=== PATIENT | female | born 1930 | race Caucasian/White ===

== ENCOUNTER 2018-02-19 09:35 | Inpatient (IN) ==
[2018-02-19 10:26] LABS: Baso # (Auto) 0.1 th/mm3 (0.0-0.2); Baso % (Auto) 0.7 % (0.0-2.0); Eos # (Auto) 0.1 th/mm3 (0.0-0.4); Eos % (Auto) 2.1 % (0.0-4.0); Hematocrit 39.3 % (35.0-46.0); Hemoglobin 12.8 gm/dL (11.6-15.3); Lymph # (Auto) 1.9 th/mm3 (1.0-4.8); Lymph % (Auto) 26.8 % (9.0-44.0); Mean Corpuscular HGB Conc 32.7 % (32.0-36.0); Mean Corpuscular Hemoglobin 29.3 pg (27.0-34.0); Mean Corpuscular Volume 89.8 fL (80.0-100.0); Mean Platelet Volume 9.2 fL (7.0-11.0); Mono # (Auto) 0.5 th/mm3 (0.0-0.9); Mono % (Auto) 7.5 % (0.0-8.0); Neut # (Auto) 4.4 th/mm3 (1.8-7.7); Neut % (Auto) 62.9 % (16.0-70.0); Platelet Count 195 th/mm3 (150-450); Red Blood Count 4.38 mil/mm3 (4.00-5.30); Red Cell Distribution Width 13.7 % (11.6-17.2); White Blood Count 7.1 th/mm3 (4.0-11.0)
--- NOTE | 2018-02-19 10:35 | XR ---
EXAM DATE: 02/19/2018 10:32 AM EDT AGE/SEX: 88 years / Female INDICATIONS: Leg pain. Fall. CLINICAL DATA: This is the patient's initial encounter. Patient reports that signs and symptoms have been present for 1 day and indicates a pain score of 0/10. MEDICAL/SURGICAL HISTORY: None. . Left knee surgery. COMPARISON: No prior exams available for comparison. FINDINGS: Cardiomegaly and aortic calcification. Degenerative changes of the spine. High riding humeral heads a re noted. There is mild interstitial prominence without focal consolidation or effusion. CONCLUSION: Mild interstitial prominence. Electronically signed by: Rodney Ye MD 02/19/2018 10:33 AM EDT
--- NOTE | 2018-02-19 10:40 | XR ---
EXAM DATE: 02/19/2018 10:34 AM EDT AGE/SEX: 88 years / Female INDICATIONS: Displaced fracture of the left distal femur from fall. CLINICAL DATA: This is the patient's initial encounter. Patient reports that signs and symptoms have been present for 1 day and indicates a pain score of 6/10. MEDICAL/SURGICAL HISTORY: None. . Left knee surgery. COMPARISON: No prior exams available for comparison. FINDINGS: There is a comminuted and displaced fracture through the distal femoral diaphysis with posterior disp lacement of the distal fracture fragments and apex anterior angulation. A total knee arthroplasty is present. CONCLUSION: Distal femur fracture. Electronically signed by: Rodney Ye MD 02/19/2018 10:39 AM EDT
[2018-02-19 10:50] LABS: Alanine Aminotransferase 24 U/L (10-53); Alkaline Phosphatase 75 U/L (45-117); Total Protein 6.8 g/dL (6.4-8.2)
--- NOTE | 2018-02-19 10:55 | P.HPFP ---
History of Present Illness Primary Care Physician: Soy Baer MD, R2 <Dave Mccurdy - 02/20/18 13:35> Soy Baer MD, R2 <Glenda Knight - 02/19/18 10:55> History of Present Illness: Dr Soy Baer is PCP Ms. Peacock is a 88yof with known osteopenia/osteoporosis who presents with pain in L leg. She reports that this morning at about 9:00 she was chasing her grandchild and went to lift her leg. She heard a pop and grabbed shelving unit to slide to the ground. No direct blow to the leg. Pain felt in the L ankle, but nothing in the knee or hip. She did not hit her head or pass out. She has not ambulated since the incident. At baseline she ambulates without assistance. H/o kyphoplasty. Is currently on Calcitonin. Has not eaten anything today. PMH: Dyslipidemia Lymphedema Insomnia GERD [place] Osteopenia/Osteoporosis Meds: Simvastatin Temazepam Omeprazole Triam/HCTZ Calcitonin Sx: L TKR Hysterectomy Cholecystectomy Hernia repair Tonsillectomy Kyphoplasty x2 FMH: Mother- heart problems Social: Tobacco- former smoker EtOH- none Drugs- none Lives at home with her daughter. <Glenda Knight - 02/19/18 13:18> - Diagnosis (1) Femur fracture, left (2) Tibia/fibula fracture (3) Abnormal chest xray (4) Dyslipidemia (5) GERD (gastroesophageal reflux disease) (6) Lymphedema (7) Nutrition, metabolism, and development symptoms <Dave Mccurdy - 02/20/18 13:35> (1) Femur fracture, left (2) Tibia/fibula fracture (3) Abnormal chest xray (4) Dyslipidemia (5) GERD (gastroesophageal reflux disease) (6) Lymphedema (7) Nutrition, metabolism, and development symptoms <Glenda Knight - 02/19/18 14:23> Inpatient Certification: I certify that the inpatient services were ordered in accordance with Medicare regulations governing the order. This includes certification that hospital inpatient services are reasonable and necessary and in the case of services not specified as inpatient-only under 42 CFR 419.22(n), that they are appropriately provided as inpatient services in accordance to with the 2-midnight benchmark under 43 CFR 412.3(e) <Dave Mccurdy 02/20/18 13:35> Review of Systems Constitutional: Denies fever(s), Denies headache(s), Denies weakness <Glenda Knight 02/19/18 11:33> Cardiovascular: Reports leg swelling (C), Denies chest pain, Denies fainting, Denies lightheadedness <Glenda Knight 02/19/18 11:33> Comments: Chronic <Glenda Knight 02/19/18 11:33> Respiratory: Denies cough, Denies shortness of breath <Glenda Knight 12:51> Gastrointestinal: Reports heartburn, Denies bright, red blood in stools, Denies change in bowel habits, Denies nausea, Denies vomiting <Glenda Knight 12:51> Genitourinary: Reports painful urination, Reports urinary urgency, Denies blood in urine, Denies urinary incontinence <Glenda Knight 02/19/18 12:51> Musculoskeletal: Reports muscle cramps, Denies joint pain <Glenda Knight 08/07 12:51> Neurologic: Denies abnormal walking, Denies dizziness, Denies frequent falls < Glenda Knight 02/19/18 12:51> PMFSH - History History Provided By: Patient <Glenda Knight 02/19/18 10:55> - Medical History Medical History: Medical History (Last Updated 02/19/18 @ 12:52 by Vargas Bermudez MD) Edema GERD (gastroesophageal reflux disease) Hemorrhage following tonsillectomy and adenoidectomy Hypercholesterolemia <Dave Mccurdy - 02/20/18 13:35> Medical History (Last Updated 02/19/18 @ 12:52 by Vargas Bermudez MD) Edema GERD (gastroesophageal reflux disease) Hemorrhage following tonsillectomy and adenoidectomy Hypercholesterolemia <Glenda Knight 02/19/18 13:14> - Surgical History Surgical History: Surgical History (Last Reviewed 02/19/18 @ 12:52 by Vargas Bermudez MD) History of cholecystectomy History of kyphoplasty History of left knee replacement History of tubal ligation Hx of appendectomy <Dave Mccurdy 02/20/18 13:35> Surgical History (Last Reviewed 02/19/18 @ 12:52 by Vargas Bermudez MD) History of cholecystectomy History of kyphoplasty History of left knee replacement History of tubal ligation Hx of appendectomy <AntoniaGlenda sharma 02/19/18 13:14> - Tobacco History Second Hand Smoke Exposure: No <Glenda Knight 02/19/18 10:55> Tobacco Use In Past 30 Days: No <Glenda Knight 02/19/18 10:55> Smoking Status: Former smoker <Glenda Knight 02/19/18 10:55> Tobacco Type: Cigarettes <Glenda Knight 02/19/18 10:55> - Alcohol History How Often Do You Have a Drink Containing Alcohol: Monthly or less <Glenda Knight 02/19/18 10:55> - Substance Use History Substance History: No History of Abuse <Glenda Knight 02/19/18 10:55> - Travel History Recent Travel in the [facility] Within the Last 8 Weeks: No <Glenda Knight 10:55> Recent Travel Out of the Country Within the Last 8 Weeks: No <Glenda Knight 02/19/18 10:55> - Immunization History Tetanus Immunization: Unsure <Glenda Knight 02/19/18 10:55> Hx Influenza Vaccine This Season: No <Glenda Knight 02/19/18 10:55> Medications and Allergies Allergies Allergy/AdvReac Type Severity Reaction Status Date / Time penicillin G Allergy Mild Hives Verified 02/19/18 09:52 erythromycin base Allergy Hives Verified 02/19/18 11:07 <Dave Mccurdy - 02/20/18 13:35> Home Medications Medication Instructions Recorded Confirmed Type Sleeping Pill 02/19/18 History omeprazole 20 mg PO DAILY 02/19/18 02/19/18 History simvastatin 20 mg PO QPM 02/19/18 02/19/18 History triamterene-hydrochlorothiazid 1 cap PO DAILY 02/19/18 02/19/18 History [Dyazide] <Dave Mccurdy - 02/20/18 13:35> Active Medications: Active Medications Acetaminophen (Tylenol) 650 mg PO Q6HR PRN PRN Reason: PAIN SCALE 1 TO 2 Hydrocodone Bitart/Acetaminophen ([place] 5/325) 1 tab PO Q4H PRN PRN Reason: PAIN SCALE 3 TO 5 Last Admin: 02/20/18 06:57 Dose: 1 tab Hydrocodone Bitart/Acetaminophen ([place] 7.5/325) 1 tab PO Q4H PRN PRN Reason: PAIN SCALE 6 TO 10 Last Admin: 02/20/18 11:29 Dose: 1 tab Al Hydroxide/Mg Hydroxide (Milk Of Magnant[place] Liq) 30 ml PO Q12H PRN PRN Reason: Mild Constipation Aspirin (Ecotrin) 81 mg PO BID [facility] Last Admin: 02/20/18 08:54 Dose: 81 mg Sodium Chloride (Ns Inj) 1,000 mls @ 125 mls/hr IV.CONT .Q8H [facility] Last Admin: 02/20/18 11:32 Dose: 125 mls/hr Cefazolin/Sodium Chloride (Ancef 2 Gm Premix Inj) 2 gm in 100 mls @ 200 mls/hr IV.SIG Q8H [facility] Stop: 02/20/18 14:29 Last Admin: 02/20/18 13:21 Dose: 200 mls/hr Miscellaneous Information ([facility] [facility] 1 each OTHER UNSCH PRN PRN Reason: SEE LABEL COMMENTS Stop: 02/20/18 16:07 Morphine Sulfate (Morphine Inj) 4 mg IV.PUSH Q3H PRN PRN Reason: BREAKTHROUGH PAIN Last Admin: 02/19/18 22:58 Dose: 4 mg Naloxone HCl (Narcan Inj) 0.4 mg IV.PUSH UNSCH PRN PRN Reason: SEE LABEL COMMENTS Pantoprazole Sodium (Protonix) 20 mg PO DAILY [facility] Last Admin: 02/20/18 08:54 Dose: 20 mg Pravastatin Sodium (Pravachol) 40 mg PO QPM [facility] Last Admin: 02/19/18 21:26 Dose: 40 mg Senna/Docusate Sodium (Katrina-Colace) 1 tab PO BID [facility] Last Admin: 02/20/18 08:54 Dose: 1 tab Sennosides (Senokot) 17.2 mg PO Q12H PRN PRN Reason: Moderate Constipation Sodium Chloride (Ns Flush) 2 ml IV.FLUSH UNSCH PRN PRN Reason: FLUSH AFTER USING IV ACCESS Triamterene/HCTZ (Dyazide 37.5/25 Mg) 1 cap PO DAILY [facility] Last Admin: 02/20/18 08:55 Dose: 1 cap Vitamin D (Vitamin D3) 2,000 unit PO DAILY [facility] Last Admin: 02/20/18 08:55 Dose: 2,000 unit <SaraAmilcar nicolasDave - 02/20/18 13:35> Active Medications Sodium Chloride (Ns Flush) 2 ml IV.FLUSH UNSCH PRN PRN Reason: FLUSH AFTER USING IV ACCESS <Glenda Knight Chip - 02/19/18 10:55> Exam Vital signs: Vital Signs 02/19/18 16:00 02/19/18 16:15 02/19/18 16:30 Temperature 97.4 F L Pulse Rate 72 76 78 Respiratory Rate 16 16 16 Blood Pressure 121/95 H 109/53 L 116/54 L Pulse Oximetry 94 L 98 99 02/19/18 16:45 02/19/18 17:30 02/19/18 20:00 Temperature 97.6 F Pulse Rate 82 89 96 H Respiratory Rate 19 16 17 Blood Pressure 112/53 L 109/55 L 109/55 L Pulse Oximetry 94 L 98 98 02/20/18 00:00 02/20/18 04:00 02/20/18 08:00 Temperature 97.5 F L 97.7 F 98.1 F Pulse Rate 92 H 90 89 Respiratory Rate 17 17 16 Blood Pressure 107/54 L 110/56 L 109/52 L Pulse Oximetry 98 98 91 L 02/20/18 12:00 Temperature 98.2 F Pulse Rate 86 Respiratory Rate 16 Blood Pressure 90/55 L Pulse Oximetry 90 L Intake & Output 02/19/18 02/20/18 02/20/18 18:59 06:59 18:59 Intake Total 1400 / 1400 2200 / 2200 100 / 100 Output Total 1450 / 1450 250 / 250 Balance -50 / -50 1950 / 1950 100 / 100 Weight 88.451 kg 88.6 kg Intake: IV 2200 / 2200 100 / 100 NS Inj 1,000 ML @ 125 mls/hr IV 1999 / 1999 .CONT .Q8H [facility] Rx#:[id number] Ancef 2 GM Premix Inj 2 gm In 100 / 100 100 / 100 100 ml @ 200 mls/hr IV.SIG Q8H [facility] Rx#:[id number] Anesthesia Amount 1400 / 1400 Output: Estimated Blood Loss 300 / 300 Urine Amount (Catheter) 1150 / 1150 250 / 250 Indwelling Urethral Catheter 1150 / 1150 250 / 250 Other: Date of Last Bowel Movement 02/18/18 <Dave Mccurdy - 02/20/18 13:35> Vital Signs 02/19/18 09:42 02/19/18 09:51 Temperature 97.7 F Pulse Rate 81 Respiratory Rate 15 Blood Pressure 192/83 H Pulse Oximetry 95 95 Intake & Output 02/18/18 02/19/18 02/19/18 18:59 06:59 18:59 Weight 88.451 kg <Glenda Knight - 02/19/18 10:55> Narrative: GENERAL: Female lying in bed resting comfortably no acute distress SKIN: Warm and dry. HEAD: Normocephalic. Atraumatic EYES: No scleral icterus. No injection or drainage. Oropharynx: Torus noted on hard palate, no lesions CARDIOVASCULAR: Regular rate and rhythm without murmurs, gallops, or rubs. RESPIRATORY: Breath sounds equal bilaterally. No accessory muscle use. No wheezing or crackles heard GASTROINTESTINAL: Abdomen soft, non-tender, nondistended. MUSCULOSKELETAL: No cyanosis. 2+ nonpitting edema bilaterally left slightly worse than right, nonpitting. Minimal tenderness to palpation around the ankle and lower thigh. No overt bruising noted. pulses and sensation intact bilaterally. Patient able to move toes bilaterally. <Glenda Knight - 02/19/18 13:14> Results - Labs Result diagrams: 02/20/18 03:39 02/20/18 03:39 <Dave Mccurdy - 02/20/18 13:35> Abnormal lab results 02/20/18 02/20/18 Range/Units 03:39 03:39 WBC 12.1 H D (4.0-11.0) th/mm3 RBC 3.02 L (4.00-5.30) mil/mm3 Hgb 9.1 L D (11.6-15.3) gm/dL Hct 27.1 L (35.0-46.0) % Neut % (Auto) 84.6 H (16.0-70.0) % Lymph % (Auto) 6.6 L (9.0-44.0) % [place] % (Auto) 8.7 H (0.0-8.0) % Neut # (Auto) 10.2 H (1.8-7.7) th/mm3 Lymph # (Auto) 0.8 L (1.0-4.8) th/mm3 [place] # (Auto) 1.1 H (0.0-0.9) th/mm3 BUN 29 H (7-18) mg/dL Creatinine 1.30 H (0.50-1.00) mg/dL Estimated GFR 39 L (>89) mL/min Random Glucose 158 H (74-106) mg/dL Calcium 7.7 L (8.5-10.1) mg/dL Short CBC 02/20/18 Range/Units 03:39 WBC 12.1 H D (4.0-11.0) th/mm3 Hgb 9.1 L D (11.6-15.3) gm/dL Hct 27.1 L (35.0-46.0) % Plt Count 165 (150-450) th/mm3 [facility] 02/20/18 03:39 Sodium 136 Potassium 4.7 Chloride 102 Carbon Dioxide 25.2 BUN 29 H Creatinine 1.30 H Calcium 7.7 L <Dave Mccurdy - 02/20/18 13:35> Short CBC 02/19/18 Range/Units 09:50 WBC 7.1 (4.0-11.0) th/mm3 Hgb 12.8 (11.6-15.3) gm/dL Hct 39.3 (35.0-46.0) % Plt Count 195 (150-450) th/mm3 Liver Function 02/19/18 Range/Units 09:50 Total Bilirubin 0.6 (0.2-1.0) mg/dL ALT 24 (10-53) U/L Alkaline Phosphatase 75 (45-117) U/L <Glenda Knight - 02/19/18 10:55> - Imaging Impressions Ankle X-Ray 02/19/18 00:00 CONCLUSION: Gross anatomical alignment. Femur X-Ray 02/19/18 00:00 CONCLUSION: Intact postsurgical changes with gross anatomical alignment. <Dave Mccurdy - 02/20/18 13:35> Impressions Femur X-Ray 02/19/18 09:42 CONCLUSION: Distal femur fracture. Chest X-Ray 02/19/18 09:43 CONCLUSION: Mild interstitial prominence. <Glenda Knight - 02/19/18 10:55> Caprini VTE Risk Assessment Caprini VTE Risk Assessment: Moderate/High Risk (score >= 2) <Glenda Knight - 02/19/18 13:14> Caprini Risk Assessment Model: Point Value = 1 Point Value = 2 Point Value = 3 Point Value = 5 Age 41-60 Minor surgery BMI > 25 kg/m2 Swollen legs Varicose veins or History of unexplained or recurrent spontaneous Oral contraceptives or hormone replacement Sepsis (< 1 month) Serious lung disease, including pneumonia (< 1 month) Abnormal pulmonary function Acute myocardial infarction Congestive heart failure (< 1 month) History of inflammatory bowel disease Medical patient at bed rest Age 61-74 Arthroscopic surgery Major open surgery (> 45 min) Laparoscopic surgery (> 45 min) Malignancy Confined to bed (> 72 hours) Immobilizing plaster cast Central venous access Age >= 75 History of VTE Family history of VTE Factor V Leiden Prothrombin [id number] Lupus anticoagulant Anticardiolipin antibodies Elevated serum homocysteine Heparin-induced thrombocytopenia Other congenital or acquired thrombophilia Stroke (< 1 month) Elective arthroplasty Hip, pelvis, or leg fracture Acute spinal cord injury (< 1 month) <Dave Mccurdy - 02/20/18 13:35> Point Value = 1 Point Value = 2 Point Value = 3 Point Value = 5 Age 41-60 Minor surgery BMI > 25 kg/m2 Swollen legs Varicose veins or History of unexplained or recurrent spontaneous Oral contraceptives or hormone replacement Sepsis (< 1 month) Serious lung disease, including pneumonia (< 1 month) Abnormal pulmonary function Acute myocardial infarction Congestive heart failure (< 1 month) History of inflammatory bowel disease Medical patient at bed rest Age 61-74 Arthroscopic surgery Major open surgery (> 45 min) Laparoscopic surgery (> 45 min) Malignancy Confined to bed (> 72 hours) Immobilizing plaster cast Central venous access Age >= 75 History of VTE Family history of VTE Factor V Leiden Prothrombin [id number] Lupus anticoagulant Anticardiolipin antibodies Elevated serum homocysteine Heparin-induced thrombocytopenia Other congenital or acquired thrombophilia Stroke (< 1 month) Elective arthroplasty Hip, pelvis, or leg fracture Acute spinal cord injury (< 1 month) <Glenda Knight - 02/19/18 10:55> Prophylaxis Regimen: Total Risk Factor Score Risk Level Prophylaxis Regimen 0-1 Low Early ambulation 2 Moderate Order ONE of the following: *Sequential Compression Device (SCD) *Heparin 5000 units SQ BID 3-4 Higher Order ONE of the following medications: *Heparin 5000 units SQ TID *Enoxaparin/Lovenox 40 mg SQ daily (WT < 150 kg, CrCl > 30 mL/min) *Enoxaparin/Lovenox 30 mg SQ daily (WT < 150 kg, CrCl > 10-29 mL/min) *Enoxaparin/Lovenox 30 mg SQ BID (WT < 150 kg, CrCl > 30 mL/min) AND/OR *Sequential Compression Device (SCD) 5 or more Highest Order ONE of the following medications: *Heparin 5000 units SQ TID (Preferred with Epidurals) *Enoxaparin/Lovenox 40 mg SQ daily (WT < 150 kg, CrCl > 30 mL/min) *Enoxaparin/Lovenox 30 mg SQ daily (WT < 150 kg, CrCl > 10-29 mL/min) *Enoxaparin/Lovenox 30 mg SQ BID (WT < 150 kg, CrCl > 30 mL/min) AND *Sequential Compression Device (SCD) <Dave Mccurdy - 02/20/18 13:35> Total Risk Factor Score Risk Level Prophylaxis Regimen 0-1 Low Early ambulation 2 Moderate Order ONE of the following: *Sequential Compression Device (SCD) *Heparin 5000 units SQ BID 3-4 Higher Order ONE of the following medications: *Heparin 5000 units SQ TID *Enoxaparin/Lovenox 40 mg SQ daily (WT < 150 kg, CrCl > 30 mL/min) *Enoxaparin/Lovenox 30 mg SQ daily (WT < 150 kg, CrCl > 10-29 mL/min) *Enoxaparin/Lovenox 30 mg SQ BID (WT < 150 kg, CrCl > 30 mL/min) AND/OR *Sequential Compression Device (SCD) 5 or more Highest Order ONE of the following medications: *Heparin 5000 units SQ TID (Preferred with Epidurals) *Enoxaparin/Lovenox 40 mg SQ daily (WT < 150 kg, CrCl > 30 mL/min) *Enoxaparin/Lovenox 30 mg SQ daily (WT < 150 kg, CrCl > 10-29 mL/min) *Enoxaparin/Lovenox 30 mg SQ BID (WT < 150 kg, CrCl > 30 mL/min) AND *Sequential Compression Device (SCD) <Glenda Knight - 02/19/18 10:55> Assessment and Plan - Assessment (1) Femur fracture, left Code(s): S72.92XA - Unspecified fracture of left femur, initial encounter for closed fracture Status: Acute (2) Tibia/fibula fracture Code(s): S82.209A - Unspecified fracture of shaft of unspecified tibia, initial encounter for closed fracture; S82.409A - Unspecified fracture of shaft of unspecified fibula, initial encounter for closed fracture Status: Acute (3) Abnormal chest xray Code(s): R93.8 - Abnormal findings on diagnostic imaging of other specified body structures Status: Acute (4) Dyslipidemia Code(s): E78.5 - Hyperlipidemia, unspecified Status: Acute (5) GERD (gastroesophageal reflux disease) Code(s): K21.9 - Gastro-esophageal reflux disease without esophagitis Status: Acute (6) Lymphedema Code(s): I89.0 - Lymphedema, not elsewhere classified Status: Acute (7) Nutrition, metabolism, and development symptoms Code(s): R63.8 - Other symptoms and signs concerning food and fluid intake Status: Acute <Dave Mccurdy - 02/20/18 13:35> (1) Femur fracture, left Code(s): S72.92XA - Unspecified fracture of left femur, initial encounter for closed fracture Status: Acute Plan: -Femur x-ray shows comminuted nondisplaced fracture through distal femur diaphysis with posterior displacement. Previous total knee arthroplasty present. -Neurovascularly intact, no evidence of compartment syndrome at this time -Consult orthopedic surgery, Dr. Tavarez spoke with Dr. Bermudez who plans for possible surgery today -Pain control with Percocet and morphine for breakthrough -Patient placed in traction -N.p.o. with plans for possible surgery -Hold off on anticoagulation for now (2) Tibia/fibula fracture Code(s): S82.209A - Unspecified fracture of shaft of unspecified tibia, initial encounter for closed fracture; S82.409A - Unspecified fracture of shaft of unspecified fibula, initial encounter for closed fracture Status: Acute Plan: Oblique mildly displaced fracture of distal fibula as well as comminuted fracture distal tibial metaphysis and medial malleolus noted. -Orthopedic surgery consulted for femur fracture will follow the recommendations for this fracture as well. Dr. Bermudez to see the patient today -Pain control as above -Patient is on bedrest (3) Abnormal chest xray Code(s): R93.8 - Abnormal findings on diagnostic imaging of other specified body structures Status: Acute Plan: Mild interstitial prominence without focal consolidation or effusion noted on chest x-ray Patient is asymptomatic and satting at 95% on room air. -Continue to monitor (4) Dyslipidemia Code(s): E78.5 - Hyperlipidemia, unspecified Status: Acute Plan: Continue home simvastatin (5) GERD (gastroesophageal reflux disease) Code(s): K21.9 - Gastro-esophageal reflux disease without esophagitis Status: Acute Plan: Pantoprazole daily (6) Lymphedema Code(s): I89.0 - Lymphedema, not elsewhere classified Status: Acute Plan: Continue home triamterene/HCTZ (7) Nutrition, metabolism, and development symptoms Code(s): R63.8 - Other symptoms and signs concerning food and fluid intake Status: Acute Plan: Diet: N.p.o. for now pending possible surgery this afternoon Fluids: Normal saline at 125 mL/h as patient is currently n.p.o. DVT prophylaxis: Hold for now as patient is possibly going to surgery today <Glenda Knight - 02/19/18 14:23> - Assessment and Plan Discussed Condition With: Dr Carrillo <Glenda Knight - 02/19/18 13:14> - Attending Attestation Patient seen and examined. Discussed with Dr. Espinosa. Agree with physical findings, assessment and plan as documented. <Dave Mccurdy - 02/20/18 13:35> <Glenda Knight E - Last Filed: 02/19/18 14:23> (1) Femur fracture, left Qualifiers: Encounter type: initial encounter Femur location: distal Fracture type: closed (2) Tibia/fibula fracture Qualifiers: Encounter type: initial encounter Fracture type: closed Laterality: left Qualified Code(s): S82.202A - Unspecified fracture of shaft of left tibia, initial encounter for closed fracture; S82.402A - Unspecified fracture of shaft of left fibula, initial encounter for closed fracture <Dave Mccurdy - Last Filed: 02/20/18 13:35> (1) Femur fracture, left Qualifiers: Encounter type: initial encounter Femur location: distal Fracture type: closed (2) Tibia/fibula fracture Qualifiers: Encounter type: initial encounter Fracture type: closed Laterality: left Qualified Code(s): S82.202A - Unspecified fracture of shaft of left tibia, initial encounter for closed fracture; S82.402A - Unspecified fracture of shaft of left fibula, initial encounter for closed fracture (5) GERD (gastroesophageal reflux disease) Qualifiers: Esophagitis presence: esophagitis presence not specified Qualified Code(s): K21.9 - Gastro-esophageal reflux disease without esophagitis <Glenda Knight - Last Filed: 02/19/18 14:23> (1) Femur fracture, left Qualifiers: Encounter type: initial encounter Femur location: distal Fracture type: closed (2) Tibia/fibula fracture Qualifiers: Encounter type: initial encounter Fracture type: closed Laterality: left Qualified Code(s): S82.202A - Unspecified fracture of shaft of left tibia, initial encounter for closed fracture; S82.402A - Unspecified fracture of shaft of left fibula, initial encounter for closed fracture <Prevatte,Dave - Last Filed: 02/20/18 13:35> (1) Femur fracture, left Qualifiers: Encounter type: initial encounter Femur location: distal Fracture type: closed (2) Tibia/fibula fracture Qualifiers: Encounter type: initial encounter Fracture type: closed Laterality: left Qualified Code(s): S82.202A - Unspecified fracture of shaft of left tibia, initial encounter for closed fracture; S82.402A - Unspecified fracture of shaft of left fibula, initial encounter for closed fracture (5) GERD (gastroesophageal reflux disease) Qualifiers: Esophagitis presence: esophagitis presence not specified Qualified Code(s): K21.9 - Gastro-esophageal reflux disease without esophagitis
[2018-02-19 10:57] LABS: Albumin 3.6 g/dL (3.4-5.0); Anion Gap 8 meq/L (5-15); Aspartate Aminotransferase 30 U/L (15-37); Blood Urea Nitrogen 20 mg/dL (7-18); Calcium 8.3 mg/dL (8.5-10.1); Carbon Dioxide 28.2 meq/L (21.0-32.0); Chloride 103 meq/L (98-107); Glomerular Filtration Rate 51 mL/min (>89); Glucose,Random 121 mg/dL (74-106); Potassium 4.2 meq/L (3.5-5.1); Sodium 139 meq/L (136-145)
--- NOTE | 2018-02-19 11:11 | ED ---
HPI General Chief complaint: Fall Stated complaint: Pain Time Seen by Provider: 02/19/18 09:47 History of Present Illness HPI narrative: Patient is an 88 year old female presents to the ER after a lip and fall in the kitchen. Patient has history of total knee on the left. has obvious deformity of left femur distal third. Patient received morphine enroute. Complains of only minimal discomfort. Adamantly denies Head/Neck/Back /Chest/Abd/Pelvic pain. States she was turning to interact with her grandson, lost her footing and fell to the ground. Denies head trauma. Related Data Home Medications Medication Instructions Recorded Confirmed omeprazole 20 mg PO DAILY 02/19/18 02/22/18 simvastatin 40 mg PO HS 02/19/18 02/22/18 triamterene-hydrochlorothiazid 1 cap PO DAILY 02/19/18 02/22/18 [Dyazide] aspirin 81 mg PO BID 02/22/18 02/22/18 Allergies Allergy/AdvReac Type Severity Reaction Status Date / Time erythromycin base Allergy Intermediate Hives Verified 02/22/18 14:06 penicillin G Allergy Intermediate Hives Verified 02/22/18 14:07 Review of Systems ROS: all other systems reviewed are negative [facility] Medical History Medical History Cataract (Acute) Edema (Acute) GERD (gastroesophageal reflux disease) (Acute) Hemorrhage following tonsillectomy and adenoidectomy (Acute) History of hysterectomy (Acute) Hypercholesterolemia (Acute) Insomnia (Acute) Lymphedema (Acute) Osteopenia (Acute) Osteoporosis (Acute) Schatzki's ring (Acute) Family History Family History Mother Patient denies significant medical history Father Heart disease Brother Throat cancer Brother Prostate cancer Brother Lung cancer Social History Social History Substance History: No History of Abuse Second Hand Smoke Exposure: No Smoking Status: Never smoker Tobacco Type: Cigarettes Packs Per Day: 2 Cigarettes Per Day: 40.0 Years Smoked: 15 Pack-Years: 30.00 Number of Pack-Years (if former smoker): 30 Smoking End Date: 1967 How Often Do You Have a Drink Containing Alcohol: Monthly or less Hx Recent Travel: No Recent Travel in [facility] within the Last 8 Weeks: No Recent Out of Country Travel within the Last 8 Weeks: No Immunization History Tetanus Immunization: Unsure Hx Influenza Vaccine This Season: No Exam Narrative Exam Narrative: GENERAL: WD/WN suprisingly comfortable appearance. SKIN: Focused skin assessment warm/dry. HEAD: Atraumatic. Normocephalic. EYES: Pupils equal and round. No scleral icterus. No injection or drainage. ENT: No nasal bleeding or discharge. Mucous membranes pink and moist. NECK: Trachea midline. No JVD. CARDIOVASCULAR: Regular rate and rhythm. No murmur appreciated. RESPIRATORY: No accessory muscle use. Clear to auscultation. Breath sounds equal bilaterally. GASTROINTESTINAL: Abdomen soft, non-tender, nondistended. Hepatic and splenic margins not palpable. MUSCULOSKELETAL: There is an obvious deformity of the distal third of the Left femur with surrounding hematoma formation. There was no femur tenderness. No left ankle tenderness. no left tib/fib tenderness. PMS was intact in all four extremities. THe remainder of the extremities were non-tender and showed no deformity. No midline C/T/L/S spine tenderness. Pelvis stable. While evaluating the patient for traction, her left ankle has become more bruised and swollen as well. NEUROLOGICAL: Awake and alert. No obvious cranial nerve deficits. Motor grossly within normal limits. Normal speech. PSYCHIATRIC: Appropriate mood and affect; insight and judgment normal. Course Initial Documented Vital Signs Temperature 97.7 F 02/19/18 09:42 Pulse Rate 81 02/19/18 09:42 Respiratory Rate 15 02/19/18 09:42 Blood Pressure 192/83 H 02/19/18 09:42 Pulse Oximetry 95 02/19/18 09:42 Last Documented Vital Signs Temperature 98.1 F 02/22/18 12:00 Pulse Rate 77 02/22/18 12:00 Respiratory Rate 17 02/22/18 12:00 Blood Pressure 116/59 L 02/22/18 12:00 Pulse Oximetry 96 02/22/18 12:00 Medical Decision Making [facility] Narrative Medical decision making narrative: Patient 88-year-old female with a history of knee fracture repaired remotely in [facility], presents emergency department after a trip and fall, has distal femur fracture, hematoma beginning to form, will be placed in traction, pain is tolerable after 10 mg of morphine prior to arrival. She reports no other injuries, has no evidence of injury to her head neck back chest abdomen or pelvis. She appears comfortable, hemodynamic is stable, discussed with residents for admission Dr. Anaya. Medical Screen Exam Complete: Yes Emergency Medical Condition: Yes Differential Diagnosis Differential Diagnosis: Femur fracture, Tib/Fib fracture, hip hematoma, compartment syndrome (excluded clinically at this time) Lab Data Result diagrams: 02/22/18 05:45 02/22/18 05:45 Lab Results 02/19/18 02/19/18 02/19/18 Range/Units 09:50 09:50 09:52 WBC 7.1 (4.0-11.0) th/mm3 RBC 4.38 (4.00-5.30) mil/mm3 Hgb 12.8 (11.6-15.3) gm/dL Hct 39.3 (35.0-46.0) % MCV 89.8 (80.0-100.0) fL MCH 29.3 (27.0-34.0) pg MCHC 32.7 (32.0-36.0) % RDW 13.7 (11.6-17.2) % Plt Count 195 (150-450) th/mm3 MPV 9.2 (7.0-11.0) fL Neut % (Auto) 62.9 (16.0-70.0) % Lymph % (Auto) 26.8 (9.0-44.0) % Sioux % (Auto) 7.5 (0.0-8.0) % Eos % (Auto) 2.1 (0.0-4.0) % Baso % (Auto) 0.7 (0.0-2.0) % Neut # (Auto) 4.4 (1.8-7.7) th/mm3 Lymph # (Auto) 1.9 (1.0-4.8) th/mm3 Sioux # (Auto) 0.5 (0.0-0.9) th/mm3 Eos # (Auto) 0.1 (0.0-0.4) th/mm3 Baso # (Auto) 0.1 (0.0-0.2) th/mm3 WBC Differential . Differential Comment Auto diff final Sodium 139 (136-145) meq/L Potassium 4.2 (3.5-5.1) meq/L Chloride 103 (98-107) meq/L Carbon Dioxide 28.2 (21.0-32.0) meq/L Anion Gap 8 (5-15) meq/L BUN 20 H (7-18) mg/dL Creatinine 1.02 H (0.50-1.00) mg/dL Estimated GFR 51 L (>89) mL/min Random Glucose 121 H (74-106) mg/dL Calcium 8.3 L (8.5-10.1) mg/dL Prot Corrected Calcium (8.5-10.1) mg/dL Total Bilirubin 0.6 (0.2-1.0) mg/dL AST 30 (15-37) U/L ALT 24 (10-53) U/L Alkaline Phosphatase 75 (45-117) U/L Total Protein 6.8 (6.4-8.2) g/dL Albumin 3.6 (3.4-5.0) g/dL Urine Color (Yellw/Straw) Urine Clarity (Clear) Urine pH (5.0-8.5) Ur Specific Roxana (1.002-1.035) Urine Protein (Neg-Trace) mg/dL Urine Glucose (UA) (Negative) mg/dL Urine Ketones (Negative) mg/dL Urine Occult Blood (Negative) Urine Nitrate (Negative) Urine Bilirubin (Negative) Urine Urobilinogen (Less than 2) mg/dL Ur Leukocyte Esterase (Negative) Urine RBC (0-3) /hpf Urine WBC (0-5) /hpf Amorphous Sediment (None) /hpf Urine Bacteria (None) /hpf Micro UA Comment Ur Microscopic Review Urine Culture Comments Blood Type A Positive Blood Type Recheck Required Antibody Screen Negative MTS Gel Crossmatch 02/19/18 02/20/18 02/20/18 Range/Units 11:48 03:39 03:39 WBC 12.1 H D (4.0-11.0) th/mm3 RBC 3.02 L (4.00-5.30) mil/mm3 Hgb 9.1 L D (11.6-15.3) gm/dL Hct 27.1 L (35.0-46.0) % MCV 89.7 (80.0-100.0) fL MCH 30.0 (27.0-34.0) pg MCHC 33.5 (32.0-36.0) % RDW 13.8 (11.6-17.2) % Plt Count 165 (150-450) th/mm3 MPV 10.3 (7.0-11.0) fL Neut % (Auto) 84.6 H (16.0-70.0) % Lymph % (Auto) 6.6 L (9.0-44.0) % Sioux % (Auto) 8.7 H (0.0-8.0) % Eos % (Auto) 0.0 (0.0-4.0) % Baso % (Auto) 0.1 (0.0-2.0) % Neut # (Auto) 10.2 H (1.8-7.7) th/mm3 Lymph # (Auto) 0.8 L (1.0-4.8) th/mm3 Sioux # (Auto) 1.1 H (0.0-0.9) th/mm3 Eos # (Auto) 0.0 (0.0-0.4) th/mm3 Baso # (Auto) 0.0 (0.0-0.2) th/mm3 WBC Differential . Differential Comment Auto diff final Sodium 136 (136-145) meq/L Potassium 4.7 (3.5-5.1) meq/L Chloride 102 (98-107) meq/L Carbon Dioxide 25.2 (21.0-32.0) meq/L Anion Gap 9 (5-15) meq/L BUN 29 H (7-18) mg/dL Creatinine 1.30 H (0.50-1.00) mg/dL Estimated GFR 39 L (>89) mL/min Random Glucose 158 H (74-106) mg/dL Calcium 7.7 L (8.5-10.1) mg/dL Prot Corrected Calcium (8.5-10.1) mg/dL Total Bilirubin (0.2-1.0) mg/dL AST (15-37) U/L ALT (10-53) U/L Alkaline Phosphatase (45-117) U/L Total Protein (6.4-8.2) g/dL Albumin (3.4-5.0) g/dL Urine Color Gisela (Yellw/Straw) Urine Clarity Clear (Clear) Urine pH 7.0 (5.0-8.5) Ur Specific Roxana 1.008 (1.002-1.035) Urine Protein Negative (Neg-Trace) mg/dL Urine Glucose (UA) Negative (Negative) mg/dL Urine Ketones Negative (Negative) mg/dL Urine Occult Blood Negative (Negative) Urine Nitrate Positive H (Negative) Urine Bilirubin Negative (Negative) Urine Urobilinogen 4 or greater (Less than 2) mg/dL Ur Leukocyte Esterase Negative (Negative) Urine RBC 1 (0-3) /hpf Urine WBC 3 (0-5) /hpf Amorphous Sediment Rare H (None) /hpf Urine Bacteria Rare H (None) /hpf Micro UA Comment Cath-culture ind Ur Microscopic Review Not Reportable Urine Culture Comments Cath-cult indicated Blood Type Blood Type Recheck Antibody Screen MTS Gel Crossmatch 02/21/18 02/21/18 02/21/18 Range/Units 06:48 06:48 14:40 WBC 8.5 (4.0-11.0) th/mm3 RBC 2.31 L (4.00-5.30) mil/mm3 Hgb 7.0 L D 6.9 L* (11.6-15.3) gm/dL Hct 20.6 L* 20.6 L* (35.0-46.0) % MCV 89.2 (80.0-100.0) fL MCH 30.5 (27.0-34.0) pg MCHC 34.2 (32.0-36.0) % RDW 13.6 (11.6-17.2) % Plt Count 131 L (150-450) th/mm3 MPV 9.6 (7.0-11.0) fL Neut % (Auto) (16.0-70.0) % Lymph % (Auto) (9.0-44.0) % Sioux % (Auto) (0.0-8.0) % Eos % (Auto) (0.0-4.0) % Baso % (Auto) (0.0-2.0) % Neut # (Auto) (1.8-7.7) th/mm3 Lymph # (Auto) (1.0-4.8) th/mm3 Sioux # (Auto) (0.0-0.9) th/mm3 Eos # (Auto) (0.0-0.4) th/mm3 Baso # (Auto) (0.0-0.2) th/mm3 WBC Differential Differential Comment Sodium 136 (136-145) meq/L Potassium 3.7 D (3.5-5.1) meq/L Chloride 102 (98-107) meq/L Carbon Dioxide 25.8 (21.0-32.0) meq/L Anion Gap 8 (5-15) meq/L BUN 22 H (7-18) mg/dL Creatinine 0.79 (0.50-1.00) mg/dL Estimated GFR 69 L (>89) mL/min Random Glucose 104 (74-106) mg/dL Calcium 7.3 L* (8.5-10.1) mg/dL Prot Corrected Calcium 8.2 L (8.5-10.1) mg/dL Total Bilirubin (0.2-1.0) mg/dL AST (15-37) U/L ALT (10-53) U/L Alkaline Phosphatase (45-117) U/L Total Protein 5.5 L D (6.4-8.2) g/dL Albumin (3.4-5.0) g/dL Urine Color (Yellw/Straw) Urine Clarity (Clear) Urine pH (5.0-8.5) Ur Specific Roxana (1.002-1.035) Urine Protein (Neg-Trace) mg/dL Urine Glucose (UA) (Negative) mg/dL Urine Ketones (Negative) mg/dL Urine Occult Blood (Negative) Urine Nitrate (Negative) Urine Bilirubin (Negative) Urine Urobilinogen (Less than 2) mg/dL Ur Leukocyte Esterase (Negative) Urine RBC (0-3) /hpf Urine WBC (0-5) /hpf Amorphous Sediment (None) /hpf Urine Bacteria (None) /hpf Micro UA Comment Ur Microscopic Review Urine Culture Comments Blood Type Blood Type Recheck Antibody Screen MTS Gel Crossmatch 02/21/18 02/22/18 02/22/18 Range/Units 17:05 05:45 05:45 WBC 9.0 (4.0-11.0) th/mm3 RBC 2.86 L (4.00-5.30) mil/mm3 Hgb 8.6 L (11.6-15.3) gm/dL Hct 25.3 L (35.0-46.0) % MCV 88.4 (80.0-100.0) fL MCH 30.2 (27.0-34.0) pg MCHC 34.2 (32.0-36.0) % RDW 13.5 (11.6-17.2) % Plt Count 156 (150-450) th/mm3 MPV 9.2 (7.0-11.0) fL Neut % (Auto) (16.0-70.0) % Lymph % (Auto) (9.0-44.0) % Sioux % (Auto) (0.0-8.0) % Eos % (Auto) (0.0-4.0) % Baso % (Auto) (0.0-2.0) % Neut # (Auto) (1.8-7.7) th/mm3 Lymph # (Auto) (1.0-4.8) th/mm3 Sioux # (Auto) (0.0-0.9) th/mm3 Eos # (Auto) (0.0-0.4) th/mm3 Baso # (Auto) (0.0-0.2) th/mm3 WBC Differential Differential Comment Sodium 136 (136-145) meq/L Potassium 3.4 L (3.5-5.1) meq/L Chloride 99 (98-107) meq/L Carbon Dioxide 27.9 (21.0-32.0) meq/L Anion Gap 9 (5-15) meq/L BUN 15 (7-18) mg/dL Creatinine 0.76 (0.50-1.00) mg/dL Estimated GFR 72 L (>89) mL/min Random Glucose 114 H (74-106) mg/dL Calcium 7.4 L* (8.5-10.1) mg/dL Prot Corrected Calcium 8.1 L (8.5-10.1) mg/dL Total Bilirubin (0.2-1.0) mg/dL AST (15-37) U/L ALT (10-53) U/L Alkaline Phosphatase (45-117) U/L Total Protein 5.9 L (6.4-8.2) g/dL Albumin (3.4-5.0) g/dL Urine Color (Yellw/Straw) Urine Clarity (Clear) Urine pH (5.0-8.5) Ur Specific Roxana (1.002-1.035) Urine Protein (Neg-Trace) mg/dL Urine Glucose (UA) (Negative) mg/dL Urine Ketones (Negative) mg/dL Urine Occult Blood (Negative) Urine Nitrate (Negative) Urine Bilirubin (Negative) Urine Urobilinogen (Less than 2) mg/dL Ur Leukocyte Esterase (Negative) Urine RBC (0-3) /hpf Urine WBC (0-5) /hpf Amorphous Sediment (None) /hpf Urine Bacteria (None) /hpf Micro UA Comment Ur Microscopic Review Urine Culture Comments Blood Type Blood Type Recheck Antibody Screen MTS Gel Crossmatch See Detail Imaging Data Radiologist's impression: Ankle X-Ray 02/19/18 00:00 CONCLUSION: Gross anatomical alignment. Femur X-Ray 02/19/18 00:00 CONCLUSION: Intact postsurgical changes with gross anatomical alignment. Hip X-Ray 02/19/18 00:00 CONCLUSION: No evidence of recent bony injury. Femur X-Ray 02/19/18 09:42 CONCLUSION: Distal femur fracture. Chest X-Ray 02/19/18 09:43 CONCLUSION: Mild interstitial prominence. Ankle X-Ray 02/19/18 11:33 CONCLUSION: Comminuted tibia and fibular fractures. Tibia/Fibula X-Ray 02/19/18 11:34 CONCLUSION: Distal tibia and fibular fractures are noted. Discharge Plan Discharge Disposition Patient Disposition: [facility] Rehab Inpatient Discharge Condition Condition: Stable Discharge Order Discharge Orders: Discharge Order (Routine); Ordered 02/22/18 Ordered By: Camden Espinosa Orthopedic Clear for Discharge (Routine); Ordered 02/22/18 Ordered By: Rebecca Laguna (Ashley) Discharge Details Anticipated Discharge Date: 02/22/18 Physicians Team ED Provider: Henri Cervantes Primary Care Provider: Soy Baer Attending Provider: Dave Mccurdy Other Providers: Vargas Bermudez Status ED Status: Left Department Discharge Information Discharge Date/Time: 02/19/18 13:02
[2018-02-19] MEDS ORDERED: Morphine Inj 4 MG, Morphine Inj 2 MG IV.PUSH ONE ×2 (11:23)
[2018-02-19] MEDS ORDERED: Naloxone Inj 0.4 MG/ML Vial IV.PUSH PRN (11:28)
[2018-02-19] MEDS ORDERED: Acetaminophen 325 MG Tablet PO PRN (11:28)
[2018-02-19] MEDS ORDERED: Morphine Inj 4 MG/ML Vial IV.PUSH PRN (11:28)
--- NOTE | 2018-02-19 12:19 | XR ---
EXAM DATE: 02/19/2018 12:16 PM EDT AGE/SEX: 88 years / Female INDICATIONS: Ankle pain. Fracture. CLINICAL DATA: This is the patient's initial encounter. Patient reports that signs and symptoms have been present for 1 day and indicates a pain score of 4/10. MEDICAL/SURGICAL HISTORY: None. . Left knee surgery. COMPARISON: [facility] [place], FEMUR LEFT 2V, 02/19/2018. . FINDINGS: A total knee arthroplasty is noted. There is an oblique mildly displaced fracture through the distal fibula as well as a comminuted fracture of the distal tibial metaphysis and medial malleolus. Plantar and posterior calcaneal enthesophytes. CONCLUSION: Distal tibia and fibular fractures are noted. Electronically signed by: Rodney Ye MD 02/19/2018 12:17 PM EDT
--- NOTE | 2018-02-19 12:23 | XR ---
EXAM DATE: 02/19/2018 12:18 PM EDT AGE/SEX: 88 years / Female INDICATIONS: Ankle fracture of lateral malleolus and possible medial malleolus. CLINICAL DATA: This is the patient's initial encounter. Patient reports that signs and symptoms have been present for 1 day and indicates a pain score of 4/10. MEDICAL/SURGICAL HISTORY: None. . Hysterectomy. H/O heart cath. COMPARISON: [facility] [place], TIBIA FIBULA LEFT 2V, 02/19/2018. . FINDINGS: Comminuted fracture of the distal tibia extending to the level of the medial malleolus as well as an oblique mildly displaced fracture through the distal fibular metaphysis. Overlying soft tissue swelli ng is seen. Plantar and posterior calcaneal enthesophytes. There is mild widening of the tibiotalar j oint anteriorly. CONCLUSION: Comminuted tibia and fibular fractures. Electronically signed by: Rodney Ye MD 02/19/2018 12:22 PM EDT
[2018-02-19] MEDS ORDERED: Bupivacaine/Epinephrine Inj 0.25% 50 ML Vial ONE (12:28)
[2018-02-19] MEDS ORDERED: Clindamycin Inj 600 MG/4 ML Vial ONE (12:28)
[2018-02-19] MEDS ORDERED: Clindamycin Inj 900 MG/6 ML Vial ONE (12:29)
--- NOTE | 2018-02-19 12:47 | XR ---
EXAM DATE: 02/19/2018 12:37 PM EDT AGE/SEX: 88 years / Female INDICATIONS: Fall on left side. CLINICAL DATA: This is the patient's initial encounter. Patient reports that signs and symptoms have been present for 1 day and indicates a pain score of 0/10. MEDICAL/SURGICAL HISTORY: None. None. COMPARISON: [facility] [place], FEMUR LEFT 2V, 02/19/2018. . FINDINGS: There is moderate narrowing of both hips. Mild acetabular and femoral osteophytosis is seen. Moderate degenerative changes of the lumbar spine. No fracture or dislocation. CONCLUSION: No evidence of recent bony injury. Electronically signed by: Rodney Ye MD 02/19/2018 12:46 PM EDT
--- NOTE | 2018-02-19 13:00 | P.CONOP ---
[facility] Orthopedics Consult Note - [facility] Consult date: 02/19/18 Consult reason: fracture Chief complaint: Femur Fracture, ankle fracture Narrative: Ms. Peacock is a 88yof with known osteopenia/osteoporosis who presents with pain in L leg. She reports that this morning at about 9:00 she was chasing her grandchild and went to lift her leg. She heard a pop and grabbed shelving unit to slide to the ground. No direct blow to the leg. Pain felt in the L ankle, but nothing in the knee or hip. She did not hit her head or pass out. She has not ambulated since the incident. At baseline she ambulates without assistance. H/o kyphoplasty. Is currently on Calcitonin. Has not eaten anything today. X- rays in the emergency department revealed a distal third displaced femoral shaft fracture and a minimally displaced trimalleolar fracture of the ankle. There is a total knee arthroplasty on the left. She was admitted to the medical service with orthopedic consultation requested. Review of Systems All other systems reviewed negative except as stated in [facility] - History History Provided By: Patient - Medical History Medical History: Medical History (Last Updated 02/19/18 @ 12:52 by Vargas Bermudez MD) Edema GERD (gastroesophageal reflux disease) Hemorrhage following tonsillectomy and adenoidectomy Hypercholesterolemia - Surgical History Surgical History: Surgical History (Last Reviewed 02/19/18 @ 12:52 by Vargas Bermudez MD) History of cholecystectomy History of kyphoplasty History of left knee replacement History of tubal ligation Hx of appendectomy - Tobacco History Second Hand Smoke Exposure: No Tobacco Use In Past 30 Days: No Smoking Status: Former smoker Tobacco Type: Cigarettes - Alcohol History How Often Do You Have a Drink Containing Alcohol: Monthly or less - Substance Use History Substance History: No History of Abuse - Travel History Recent Travel in the [place] Within the Last 8 Weeks: No Recent Travel Out of the Country Within the Last 8 Weeks: No - Immunization History Tetanus Immunization: Unsure Hx Influenza Vaccine This Season: No Medications and Allergies Active Medications: Active Medications Acetaminophen (Tylenol) 650 mg PO Q6HR PRN PRN Reason: PAIN SCALE 1 TO 2 Hydrocodone Bitart/Acetaminophen ([place] 5/325) 1 tab PO Q4H PRN PRN Reason: PAIN SCALE 3 TO 5 Hydrocodone Bitart/Acetaminophen ([place] 7.5/325) 1 tab PO Q4H PRN PRN Reason: PAIN SCALE 6 TO 10 Al Hydroxide/Mg Hydroxide (Milk Of Bharat Pro) 30 ml PO Q12H PRN PRN Reason: Mild Constipation Sodium Chloride (Ns Inj) 1,000 mls @ 125 mls/hr IV.CONT .Q8H INDERJIT Morphine Sulfate (Morphine Inj) 4 mg IV.PUSH Q3H PRN PRN Reason: BREAKTHROUGH PAIN Naloxone HCl (Narcan Inj) 0.4 mg IV.PUSH UNSCH PRN PRN Reason: SEE LABEL COMMENTS Non-Formulary Medication (Simvastatin [Simvastatin]) 20 mg PO QPM [facility] Non-Formulary Medication (Omeprazole [Omeprazole]) 20 mg PO DAILY [facility] Senna/Docusate Sodium (Katrina-Colace) 1 tab PO BID [facility] Sennosides (Senokot) 17.2 mg PO Q12H PRN PRN Reason: Moderate Constipation Sodium Chloride (Ns Flush) 2 ml IV.FLUSH UNSCH PRN PRN Reason: FLUSH AFTER USING IV ACCESS Triamterene/HCTZ (Dyazide 37.5/25 Mg) 1 cap PO DAILY [facility] Allergies Allergy/AdvReac Type Severity Reaction Status Date / Time penicillin G Allergy Mild Hives Verified 02/19/18 09:52 erythromycin base Allergy Hives Verified 02/19/18 11:07 Home Medications Medication Instructions Recorded Confirmed Type Sleeping Pill 02/19/18 History omeprazole 20 mg PO DAILY 02/19/18 02/19/18 History simvastatin 20 mg PO QPM 02/19/18 02/19/18 History triamterene-hydrochlorothiazid 1 cap PO DAILY 02/19/18 02/19/18 History [Dyazide] Exam Vital signs: Vital Signs 02/19/18 09:42 02/19/18 09:51 02/19/18 11:50 Temperature 97.7 F Pulse Rate 81 84 Respiratory Rate 15 14 Blood Pressure 192/83 H 134/67 Pulse Oximetry 95 95 94 L Intake & Output 02/18/18 02/19/18 02/19/18 18:59 06:59 18:59 Weight 88.451 kg - Constitutional no acute distress, average body habitus - Routine Extremities Exam Present: edema. Absent: cyanosis, clubbing Comments: 2+ edema bilaterally. Increased swelling left ankle - Detailed Lower Extremity Exam Hip: Left deformity, Left swelling, Left shortening of the leg, Left tenderness , Left decreased ROM, Left pain with external rotation, Left pain with internal rotation, Right normal inspection Upper leg: Left: deformity, tenderness Knee: Left decreased ROM Ankle: Left swelling, Left tenderness, Left decreased ROM, Left pain with active ROM, Left pain with passive ROM - Routine Skin Exam Present: intact Results - Labs Result Diagrams: 02/19/18 09:50 02/19/18 09:50 Labs: Laboratory Results - last 24 hr 02/19/18 02/19/18 02/19/18 09:50 09:50 09:52 WBC 7.1 RBC 4.38 Hgb 12.8 Hct 39.3 MCV 89.8 MCH 29.3 MCHC 32.7 RDW 13.7 Plt Count 195 MPV 9.2 Neut % (Auto) 62.9 Lymph % (Auto) 26.8 Sawyer % (Auto) 7.5 Eos % (Auto) 2.1 Baso % (Auto) 0.7 Neut # (Auto) 4.4 Lymph # (Auto) 1.9 Sawyer # (Auto) 0.5 Eos # (Auto) 0.1 Baso # (Auto) 0.1 WBC Differential . Differential Comment Auto diff final Sodium 139 Potassium 4.2 Chloride 103 Carbon Dioxide 28.2 Anion Gap 8 BUN 20 H Creatinine 1.02 H Estimated GFR 51 L Random Glucose 121 H Calcium 8.3 L Total Bilirubin 0.6 AST 30 ALT 24 Alkaline Phosphatase 75 Total Protein 6.8 Albumin 3.6 Blood Type A Positive Blood Type Recheck Required Antibody Screen Negative - Diagnostic results Imaging: Impressions Hip X-Ray 02/19/18 00:00 CONCLUSION: No evidence of recent bony injury. Femur X-Ray 02/19/18 09:42 CONCLUSION: Distal femur fracture. Chest X-Ray 02/19/18 09:43 CONCLUSION: Mild interstitial prominence. Ankle X-Ray 02/19/18 11:33 CONCLUSION: Comminuted tibia and fibular fractures. Tibia/Fibula X-Ray 02/19/18 11:34 CONCLUSION: Distal tibia and fibular fractures are noted. Hip x-ray: image reviewed Knee x-ray: image reviewed Ankle/Foot x-ray: image reviewed Assessment and Plan - Assessment and Plan 1. Displaced left femoral shaft fracture 2. Left trimalleolar ankle fracture 3. History of left total knee arthroplasty The findings were discussed with the patient and her family. The options for treatment both operative and nonoperative were discussed. The patient has significant swelling about the ankle increasing the risk of operative intervention acutely. Recommendations are for internal fixation of the left femur fracture. This would include closed reduction and intramedullary rodding. The nature of the procedure, the risks, expected benefits, as well as the postoperative expectations were discussed with them in detail. In addition , the alternatives to treatment and risks of same were discussed. She will undergo closed reduction of the ankle and the possible need for further surgical management was discussed. They acknowledge full understanding and consent to it.
[2018-02-19 13:05] LABS: Amorphous Sediment,Urine Rare /hpf; Bacteria,Urine Rare /hpf; Bilirubin,Urine Negative (Negative); Clarity,Urine Clear (Clear); Color,Urine Amber (Yellw/Straw); Glucose,Urine (UA) Negative (Negative); Leukocyte Esterase,Urine Negative (Negative); Nitrite,Urine Positive (Negative); Specific Gravity,Urine 1.008 (1.002-1.035); Urobilinogen,Urine 4 or Greater mg/dL (Less than 2)
[2018-02-19] MEDS ORDERED: Lidocaine PF 1% Inj 5 ML Syringe INFILTRATN ONE (14:05)
[2018-02-19] MEDS ORDERED: Succinylcholine Inj 100 MG/5 ML Syringe IV.PUSH ONE (14:05)
[2018-02-19] MEDS ORDERED: Phenylephrine/NS 1000 MCG/10ML Syringe IV.PUSH ONE (14:05)
[2018-02-19] MEDS ORDERED: Glycopyrrolate Inj 1 MG/5 ML Syringe IV.PUSH ONE (14:05)
[2018-02-19] MEDS ORDERED: Neostigmine Inj 5 MG/5 ML Syringe IV.PUSH ONE (14:05)
--- NOTE | 2018-02-19 15:32 | XR ---
EXAM DATE: 02/19/2018 3:23 PM EDT AGE/SEX: 88 years / Female INDICATIONS: Surgical repair of left distal femur. CLINICAL DATA: This is the patient's initial encounter. Patient reports that signs and symptoms have been present for 1 day and indicates a pain score of Nonresponsive. MEDICAL/SURGICAL HISTORY: None. . Total knee replacement, left. COMPARISON: No prior exams available for comparison. FINDINGS: Intramedullary conrad is present traversing left femur with proximal and distal fixation scre ws. There is excellent anatomical alignment of the bony structures. CONCLUSION: Intact postsurgical changes with gross anatomical alignment. Electronically signed by: Nae Jules MD 02/19/2018 3:31 PM EDT
--- NOTE | 2018-02-19 15:34 | ECG ---
Date Performed: 02/19/2018 Time Performed: 09:58:07 PTAGE: 88 years EKG: Sinus rhythm NORMAL ECG Since PREVIOUS TRACING , no significant change noted PREVIOUS TRACIN11/09/2001 10.54 DOCTOR: Vargas Cullen Interpretating Date/Time 02/19/2018 15:33:29
--- NOTE | 2018-02-19 15:38 | P.OP ---
- Preoperative Diagnosis (1) Femur fracture, left (2) Trimalleolar fracture of left ankle - Postoperative Diagnosis (1) Femur fracture, left (2) Trimalleolar fracture of left ankle Date of procedure: 02/19/18 Procedure: Closed reduction with trochanteric nail fixation left femur Closed reduction with splint immobilization left ankle Implants: Synthes long 130 angle troch nail Anesthesia: DEIDRA Surgeon: Vargas Bermudez MD Automobile Damage Appraiser: Rebecca Laguna PA-C ([place]) The surgical procedure was assisted by my physician's pest controller assistant. Her presence was necessary throughout the case for manipulation and positioning of the surgical extremity. My PA was assisting me throughout the duration of this procedure. The skill set of the physician pest controller assistant was medically necessary to complete this procedure. During the surgical case the surgical corsetier was working at the back table and the physician pest controller assistant was directly assisting me. Estimated blood loss (mL): 300 Pathology: none sent Operation and Findings: Indications: This 88-year-old female fell injuring her left lower extremity. She had immediate pain in the left thigh and ankle regions. She was unable to ambulate. X-rays in the emergency department revealed a displaced fracture of the distal third of the left femur and a minimally displaced trimalleolar fracture of the left ankle.There was significant swelling of the ankle. Because of this was elected to treat the ankle closed at the present time. Possibly requiring further surgical management was discussed. She presents to the operating room for internal fixation of the left femur. Procedure and findings: The patient was taken to the operative suite and after undergoing an adequate level of general anesthesia was placed supine on the fracture table. The right lower extremity was positioned in skin traction and the preoperative reduction checked in both the AP and lateral planes with the C- arm. It was then prepped and draped in usual sterile fashion with Hibiclens and ChloraPrep. Preoperative antibiotic consisted of Ancef 2 g IV. An incision was made over the lateral aspect of the hip extending from the greater trochanter for distance approximately 3 cm. This was carried down to skin and subcutaneous tense tissue with a knife. Hemostasis was obtained electrocautery. The muscular fascia was incised and split longitudinally. An entry point was selected at the tip of the greater trochanter. This was entered with a threaded guidepin. The position was checked in both the AP and lateral planes with the C-arm. It was subsequently overdrilled. A ball-tipped guidepin was advanced down the proximal aspect of the femur to the fracture site. The fracture was significantly displaced and required manual manipulation to pass the ball-tipped guidepin to the distal fragment. A measurement was made and the appropriate length trochanteric nail selected. The conrad was then advanced over the guidepin to the fracture site and with manual manipulation advanced across the fracture site to the knee.The position was checked in both AP and lateral planes of the C arm. The conrad did sit somewhat eccentric distally maintaining some residual displacement however was thought to be acceptable given the difficulty of the reduction and avoiding an open reduction near the total knee. Utilizing the outrigger device an additional incision was made distally. A threaded guidepin was advanced through the lateral cortex, across the nail, into the femoral neck and seated in the subchondral bone of the femoral head. The position was checked in both the AP and lateral planes with the C-arm. A measurement was then made. A 95 helical blade was selected. The lateral cortex was overdrilled. The helical blade was then impacted in the place. The locking mechanism was seated in the proximal aspect. A freehand technique was utilized for distal locking screws. The distal interlocking screw holes were drilled and the appropriate length screws placed. The position of the fracture reduction and placement of the internal fixation were checked in both the AP and lateral planes with the C- arm. The wounds were then thoroughly irrigated. They were closed in layers utilizing #1 Vicryl suture on the muscular fascia, 0 Vicryl suture in the deep tissue, 2-0 Vicryl suture on the subcutaneous tense tissue and daniela on the skin. Sterile dressings were applied. Attention was then focused on the ankle and utilizing fluoroscopic guidance a closed reduction was completed and the patient was placed into a splint. The patient was awakened, transferred to the hospital bed and taken to the recovery room in stable condition.
[2018-02-19] MEDS ORDERED: ceFAZolin 2 GM Premix Inj 2 GM/100 ML BAG IV.SIG SCH (16:00)
[2018-02-19] MEDS ORDERED: fentaNYL Citrate Inj 100 MCG/2 ML Ampul ONE ×2 (16:10)
[2018-02-19] MEDS: Sod Chloride 0.9% Inj 1,000 ML IV.CONT SCH ×2 (16:15→21:25)
--- NOTE | 2018-02-19 16:29 | XR ---
EXAM DATE: 02/19/2018 4:22 PM EDT AGE/SEX: 88 years / Female INDICATIONS: Post reduction. CLINICAL DATA: This is the patient's subsequent encounter. Patient reports that signs and symptoms h ave been present for 1 day and indicates a pain score of Nonresponsive. MEDICAL/SURGICAL HISTORY: . Total knee replacement, left. . Left femoral conrad. COMPARISON: [facility], ANKLE LIMITED LEFT 2V, 02/19/2018. . FINDINGS: Intraoperative examination demonstrates gross anatomic alignment of the fracture fragments. CONCLUSION: Gross anatomical alignment. Electronically signed by: Nae Jules MD 02/19/2018 4:28 PM EDT
[2018-02-19] MEDS: Senna/Docusate Sodium 8.6/50 MG Tablet PO SCH (21:26)
[2018-02-19] MEDS: ceFAZolin 2 GM Premix Inj 2 GM/100 ML BAG IV.SIG SCH (22:58)
[2018-02-20 05:18] LABS: Baso % (Auto) 0.1 % (0.0-2.0); Hematocrit 27.1 % (35.0-46.0); Hemoglobin 9.1 gm/dL (11.6-15.3); Lymph # (Auto) 0.8 th/mm3 (1.0-4.8); Lymph % (Auto) 6.6 % (9.0-44.0); Mean Corpuscular HGB Conc 33.5 % (32.0-36.0); Mean Corpuscular Volume 89.7 fL (80.0-100.0); Mean Platelet Volume 10.3 fL (7.0-11.0); Mono # (Auto) 1.1 th/mm3 (0.0-0.9); Mono % (Auto) 8.7 % (0.0-8.0); Neut # (Auto) 10.2 th/mm3 (1.8-7.7); Neut % (Auto) 84.6 % (16.0-70.0); Platelet Count 165 th/mm3 (150-450); Red Blood Count 3.02 mil/mm3 (4.00-5.30); Red Cell Distribution Width 13.8 % (11.6-17.2); White Blood Count 12.1 th/mm3 (4.0-11.0)
[2018-02-20 05:24] LABS: Calcium 7.7 mg/dL (8.5-10.1); Carbon Dioxide 25.2 meq/L (21.0-32.0); Potassium 4.7 meq/L (3.5-5.1)
[2018-02-20] MEDS: Sod Chloride 0.9% Inj 1,000 ML IV.CONT SCH ×3 (06:45→20:33)
[2018-02-20] MEDS: ceFAZolin 2 GM Premix Inj 2 GM/100 ML BAG IV.SIG SCH ×2 (06:57→13:21)
[2018-02-20] MEDS: Pantoprazole Sodium 20 MG DR Tablet PO SCH (08:54)
[2018-02-20] MEDS: Senna/Docusate Sodium 8.6/50 MG Tablet PO SCH ×2 (08:54→20:32)
--- NOTE | 2018-02-20 09:12 | P.PNOP ---
Subjective Interval history: Postoperative day #1 status post intramedullary nailing left femur fracture and closed reduction left ankle. The patient is awake and alert answers questions appropriately. She states she is "confused". Her pain is well controlled. She has no other specific complaint. Physical Exam Vital signs: Vital Signs 02/19/18 09:42 02/19/18 09:51 02/19/18 11:50 Temperature 97.7 F Pulse Rate 81 84 Respiratory Rate 15 14 Blood Pressure 192/83 H 134/67 Pulse Oximetry 95 95 94 L 02/19/18 16:00 02/19/18 16:15 02/19/18 16:30 Temperature 97.4 F L Pulse Rate 72 76 78 Respiratory Rate 16 16 16 Blood Pressure 121/95 H 109/53 L 116/54 L Pulse Oximetry 94 L 98 99 02/19/18 16:45 02/19/18 17:30 02/19/18 20:00 Temperature 97.6 F Pulse Rate 82 89 96 H Respiratory Rate 19 16 17 Blood Pressure 112/53 L 109/55 L 109/55 L Pulse Oximetry 94 L 98 98 02/20/18 00:00 02/20/18 04:00 Temperature 97.5 F L 97.7 F Pulse Rate 92 H 90 Respiratory Rate 17 17 Blood Pressure 107/54 L 110/56 L Pulse Oximetry 98 98 Intake & Output 02/19/18 02/20/18 02/20/18 18:59 06:59 18:59 Intake Total 1400 / 1400 2200 / 2200 100 / 100 Output Total 1450 / 1450 250 / 250 Balance -50 / -50 1950 / 1950 100 / 100 Weight 88.451 kg 88.6 kg Intake: IV 2200 / 2200 100 / 100 NS Inj 1,000 ML @ 125 mls/hr IV 1999 / 1999 .CONT .Q8H INDERJIT Rx#:[id number] Ancef 2 GM Premix Inj 2 gm In 100 / 100 100 / 100 100 ml @ 200 mls/hr IV.SIG Q8H INDERJIT Rx#:[id number] Anesthesia Amount 1400 / 1400 Output: Estimated Blood Loss 300 / 300 Urine Amount (Catheter) 1150 / 1150 250 / 250 Indwelling Urethral Catheter 1150 / 1150 250 / 250 Other: Date of Last Bowel Movement 02/18/18 Narrative: The left lower extremity dressing is dry and intact. There is mild swelling of the thigh. There is no specific palpable tenderness. The left lower extremity distally is in a splint. She moves her toes freely and has good capillary refill and sensation. She denies calf discomfort. - Constitutional no acute distress - Urinary Catheter Management Indwelling Urethral Catheter Cath placed during this visit: yes Reason for continuing: Other continuation reason Insertion date: 02/19/18 Insertion time: 11:49 Results - Labs CBC & Chem 7: 02/20/18 03:39 02/20/18 03:39 Laboratory Results - last 24 hr 02/19/18 02/19/18 02/19/18 09:50 09:50 09:52 WBC 7.1 RBC 4.38 Hgb 12.8 Hct 39.3 MCV 89.8 MCH 29.3 MCHC 32.7 RDW 13.7 Plt Count 195 MPV 9.2 Neut % (Auto) 62.9 Lymph % (Auto) 26.8 Prentiss % (Auto) 7.5 Eos % (Auto) 2.1 Baso % (Auto) 0.7 Neut # (Auto) 4.4 Lymph # (Auto) 1.9 Prentiss # (Auto) 0.5 Eos # (Auto) 0.1 Baso # (Auto) 0.1 WBC Differential . Differential Comment Auto diff final Sodium 139 Potassium 4.2 Chloride 103 Carbon Dioxide 28.2 Anion Gap 8 BUN 20 H Creatinine 1.02 H Estimated GFR 51 L Random Glucose 121 H Calcium 8.3 L Total Bilirubin 0.6 AST 30 ALT 24 Alkaline Phosphatase 75 Total Protein 6.8 Albumin 3.6 Urine Color Urine Clarity Urine pH Ur Specific Keene Urine Protein Urine Glucose (UA) Urine Ketones Urine Occult Blood Urine Nitrate Urine Bilirubin Urine Urobilinogen Ur Leukocyte Esterase Urine RBC Urine WBC Amorphous Sediment Urine Bacteria Micro UA Comment Ur Microscopic Review Urine Culture Comments Blood Type A Positive Blood Type Recheck Required Antibody Screen Negative 02/19/18 02/20/18 02/20/18 11:48 03:39 03:39 WBC 12.1 H D RBC 3.02 L Hgb 9.1 L D Hct 27.1 L MCV 89.7 MCH 30.0 MCHC 33.5 RDW 13.8 Plt Count 165 MPV 10.3 Neut % (Auto) 84.6 H Lymph % (Auto) 6.6 L Prentiss % (Auto) 8.7 H Eos % (Auto) 0.0 Baso % (Auto) 0.1 Neut # (Auto) 10.2 H Lymph # (Auto) 0.8 L Prentiss # (Auto) 1.1 H Eos # (Auto) 0.0 Baso # (Auto) 0.0 WBC Differential . Differential Comment Auto diff final Sodium 136 Potassium 4.7 Chloride 102 Carbon Dioxide 25.2 Anion Gap 9 BUN 29 H Creatinine 1.30 H Estimated GFR 39 L Random Glucose 158 H Calcium 7.7 L Total Bilirubin AST ALT Alkaline Phosphatase Total Protein Albumin Urine Color Gisela Urine Clarity Clear Urine pH 7.0 Ur Specific Keene 1.008 Urine Protein Negative Urine Glucose (UA) Negative Urine Ketones Negative Urine Occult Blood Negative Urine Nitrate Positive H Urine Bilirubin Negative Urine Urobilinogen 4 or greater Ur Leukocyte Esterase Negative Urine RBC 1 Urine WBC 3 Amorphous Sediment Rare H Urine Bacteria Rare H Micro UA Comment Cath-culture ind Ur Microscopic Review Not Reportable Urine Culture Comments Cath-cult indicated Blood Type Blood Type Recheck Antibody Screen - Imaging Impressions Ankle X-Ray 02/19/18 00:00 CONCLUSION: Gross anatomical alignment. Femur X-Ray 02/19/18 00:00 CONCLUSION: Intact postsurgical changes with gross anatomical alignment. Hip X-Ray 02/19/18 00:00 CONCLUSION: No evidence of recent bony injury. Femur X-Ray 02/19/18 09:42 CONCLUSION: Distal femur fracture. Chest X-Ray 02/19/18 09:43 CONCLUSION: Mild interstitial prominence. Ankle X-Ray 02/19/18 11:33 CONCLUSION: Comminuted tibia and fibular fractures. Tibia/Fibula X-Ray 02/19/18 11:34 CONCLUSION: Distal tibia and fibular fractures are noted. - Procedures Closed reduction with intramedullary rodding left femur 02/19/18 Closed reduction and splinting left ankle Assessment and Plan - Ortho Post Op Day # 1 - Assessment and Plan 1. Displaced left femoral shaft fracture 2. Left trimalleolar ankle fracture 3. History of left total knee arthroplasty Orthopedic status stable postoperative day 1. Progress rehabilitation. DVT prophylaxisASA. Discharge planning. Anticipate discharge to SNF in 1-2 days.
--- NOTE | 2018-02-20 09:13 | P.PNFP ---
Addendum entered and electronically signed by Cadmen Espinosa MD, R3 09:23: -Due to hypocalcemia, given Ca supplement this morning. Monitor with BMP tomorrow -Cr up to 1.30 this morning, continue to monitor. Continue IVF @ 125mls/hr. Monitor I/O -Bacteria and positive nitrate on UA--> await urine culture -Hb down to 9.1 this AM post-op. Monitor with CBC. Original Note: Subjective Interval history: Pt seen and examined this morning. S/p ortho surgery yesterday evening. Reports pain is well controlled this morning. Endorses some "shakes" overnight. Denies any chest pain, SOB, abdominal pain. Last BM was yesterday before surgery. Passing flatus. No fever/chills. <Camden Espinosa - 02/20/18 09:12> Results - Labs Result diagrams: 02/20/18 03:39 02/20/18 03:39 <Dave Mccurdy - 02/20/18 13:31> Abnormal lab results 02/20/18 02/20/18 Range/Units 03:39 03:39 WBC 12.1 H D (4.0-11.0) th/mm3 RBC 3.02 L (4.00-5.30) mil/mm3 Hgb 9.1 L D (11.6-15.3) gm/dL Hct 27.1 L (35.0-46.0) % Neut % (Auto) 84.6 H (16.0-70.0) % Lymph % (Auto) 6.6 L (9.0-44.0) % [place] % (Auto) 8.7 H (0.0-8.0) % Neut # (Auto) 10.2 H (1.8-7.7) th/mm3 Lymph # (Auto) 0.8 L (1.0-4.8) th/mm3 [place] # (Auto) 1.1 H (0.0-0.9) th/mm3 BUN 29 H (7-18) mg/dL Creatinine 1.30 H (0.50-1.00) mg/dL Estimated GFR 39 L (>89) mL/min Random Glucose 158 H (74-106) mg/dL Calcium 7.7 L (8.5-10.1) mg/dL Short CBC 02/20/18 Range/Units 03:39 WBC 12.1 H D (4.0-11.0) th/mm3 Hgb 9.1 L D (11.6-15.3) gm/dL Hct 27.1 L (35.0-46.0) % Plt Count 165 (150-450) th/mm3 BMP 02/20/18 03:39 Sodium 136 Potassium 4.7 Chloride 102 Carbon Dioxide 25.2 BUN 29 H Creatinine 1.30 H Calcium 7.7 L <Dave Mccurdy - 02/20/18 13:31> Abnormal lab results 02/19/18 02/19/18 02/20/18 Range/Units 09:50 11:48 03:39 WBC 12.1 H D (4.0-11.0) th/mm3 RBC 3.02 L (4.00-5.30) mil/mm3 Hgb 9.1 L D (11.6-15.3) gm/dL Hct 27.1 L (35.0-46.0) % Neut % (Auto) 84.6 H (16.0-70.0) % Lymph % (Auto) 6.6 L (9.0-44.0) % [place] % (Auto) 8.7 H (0.0-8.0) % Neut # (Auto) 10.2 H (1.8-7.7) th/mm3 Lymph # (Auto) 0.8 L (1.0-4.8) th/mm3 [place] # (Auto) 1.1 H (0.0-0.9) th/mm3 BUN 20 H (7-18) mg/dL Creatinine 1.02 H (0.50-1.00) mg/dL Estimated GFR 51 L (>89) mL/min Random Glucose 121 H (74-106) mg/dL Calcium 8.3 L (8.5-10.1) mg/dL Urine Nitrate Positive H (Negative) Amorphous Sediment Rare H (None) /hpf Urine Bacteria Rare H (None) /hpf 02/20/18 Range/Units 03:39 WBC (4.0-11.0) th/mm3 RBC (4.00-5.30) mil/mm3 Hgb (11.6-15.3) gm/dL Hct (35.0-46.0) % Neut % (Auto) (16.0-70.0) % Lymph % (Auto) (9.0-44.0) % [place] % (Auto) (0.0-8.0) % Neut # (Auto) (1.8-7.7) th/mm3 Lymph # (Auto) (1.0-4.8) th/mm3 [place] # (Auto) (0.0-0.9) th/mm3 BUN 29 H (7-18) mg/dL Creatinine 1.30 H (0.50-1.00) mg/dL Estimated GFR 39 L (>89) mL/min Random Glucose 158 H (74-106) mg/dL Calcium 7.7 L (8.5-10.1) mg/dL Urine Nitrate (Negative) Amorphous Sediment (None) /hpf Urine Bacteria (None) /hpf Short CBC 02/19/18 02/20/18 Range/Units 09:50 03:39 WBC 7.1 12.1 H D (4.0-11.0) th/mm3 Hgb 12.8 9.1 L D (11.6-15.3) gm/dL Hct 39.3 27.1 L (35.0-46.0) % Plt Count 195 165 (150-450) th/mm3 BMP 02/19/18 02/20/18 09:50 03:39 Sodium 139 136 Potassium 4.2 4.7 Chloride 103 102 Carbon Dioxide 28.2 25.2 BUN 20 H 29 H Creatinine 1.02 H 1.30 H Calcium 8.3 L 7.7 L Liver Function 02/19/18 Range/Units 09:50 Total Bilirubin 0.6 (0.2-1.0) mg/dL AST 30 (15-37) U/L ALT 24 (10-53) U/L Alkaline Phosphatase 75 (45-117) U/L Albumin 3.6 (3.4-5.0) g/dL Urine 02/19/18 Range/Units 11:48 Urine Color Gisela (Yellw/Straw) Urine Clarity Clear (Clear) Urine pH 7.0 (5.0-8.5) Ur Specific Circle 1.008 (1.002-1.035) Urine Protein Negative (Neg-Trace) mg/dL Urine Glucose (UA) Negative (Negative) mg/dL <Heyen,Camden J - 02/20/18 09:12> - Imaging Impressions Ankle X-Ray 02/19/18 00:00 CONCLUSION: Gross anatomical alignment. Femur X-Ray 02/19/18 00:00 CONCLUSION: Intact postsurgical changes with gross anatomical alignment. <Dave Mccurdy - 02/20/18 13:31> Impressions Ankle X-Ray 02/19/18 00:00 CONCLUSION: Gross anatomical alignment. Femur X-Ray 02/19/18 00:00 CONCLUSION: Intact postsurgical changes with gross anatomical alignment. Hip X-Ray 02/19/18 00:00 CONCLUSION: No evidence of recent bony injury. Femur X-Ray 02/19/18 09:42 CONCLUSION: Distal femur fracture. Chest X-Ray 02/19/18 09:43 CONCLUSION: Mild interstitial prominence. Ankle X-Ray 02/19/18 11:33 CONCLUSION: Comminuted tibia and fibular fractures. Tibia/Fibula X-Ray 02/19/18 11:34 CONCLUSION: Distal tibia and fibular fractures are noted. <Camden Espinosa - 02/20/18 09:12> Physical Exam Vital signs: Vital Signs 02/19/18 16:00 02/19/18 16:15 02/19/18 16:30 Temperature 97.4 F L Pulse Rate 72 76 78 Respiratory Rate 16 16 16 Blood Pressure 121/95 H 109/53 L 116/54 L Pulse Oximetry 94 L 98 99 02/19/18 16:45 02/19/18 17:30 02/19/18 20:00 Temperature 97.6 F Pulse Rate 82 89 96 H Respiratory Rate 19 16 17 Blood Pressure 112/53 L 109/55 L 109/55 L Pulse Oximetry 94 L 98 98 02/20/18 00:00 02/20/18 04:00 02/20/18 08:00 Temperature 97.5 F L 97.7 F 98.1 F Pulse Rate 92 H 90 89 Respiratory Rate 17 17 16 Blood Pressure 107/54 L 110/56 L 109/52 L Pulse Oximetry 98 98 91 L 02/20/18 12:00 Temperature 98.2 F Pulse Rate 86 Respiratory Rate 16 Blood Pressure 90/55 L Pulse Oximetry 90 L Intake & Output 02/19/18 02/20/18 02/20/18 18:59 06:59 18:59 Intake Total 1400 / 1400 2200 / 2200 100 / 100 Output Total 1450 / 1450 250 / 250 Balance -50 / -50 1949 100 / 100 Weight 88.451 kg 88.6 kg Intake: IV 2200 / 2200 100 / 100 NS Inj 1,000 ML @ 125 mls/hr IV 1999 .CONT .Q8H [facility] Rx#:[id number] Ancef 2 GM Premix Inj 2 gm In 100 / 100 100 / 100 100 ml @ 200 mls/hr IV.SIG Q8H [facility] Rx#:[id number] Anesthesia Amount 1400 / 1400 Output: Estimated Blood Loss 300 / 300 Urine Amount (Catheter) 1150 / 1150 250 / 250 Indwelling Urethral Catheter 1150 / 1150 250 / 250 Other: Date of Last Bowel Movement 02/18/18 <Dave Mccurdy - 02/20/18 13:31> Vital Signs 02/19/18 09:42 02/19/18 09:51 02/19/18 11:50 Temperature 97.7 F Pulse Rate 81 84 Respiratory Rate 15 14 Blood Pressure 192/83 H 134/67 Pulse Oximetry 95 95 94 L 02/19/18 16:00 02/19/18 16:15 02/19/18 16:30 Temperature 97.4 F L Pulse Rate 72 76 78 Respiratory Rate 16 16 16 Blood Pressure 121/95 H 109/53 L 116/54 L Pulse Oximetry 94 L 98 99 02/19/18 16:45 02/19/18 17:30 02/19/18 20:00 Temperature 97.6 F Pulse Rate 82 89 96 H Respiratory Rate 19 16 17 Blood Pressure 112/53 L 109/55 L 109/55 L Pulse Oximetry 94 L 98 98 02/20/18 00:00 02/20/18 04:00 Temperature 97.5 F L 97.7 F Pulse Rate 92 H 90 Respiratory Rate 17 17 Blood Pressure 107/54 L 110/56 L Pulse Oximetry 98 98 Intake & Output 02/19/18 02/20/18 02/20/18 18:59 06:59 18:59 Intake Total 1400 / 1400 2200 / 2200 100 / 100 Output Total 1450 / 1450 250 / 250 Balance -50 / -50 1949 100 / 100 Weight 88.451 kg 88.6 kg Intake: IV 2200 / 2200 100 / 100 NS Inj 1,000 ML @ 125 mls/hr IV 1999 / 1999 .CONT .Q8H [facility] Rx#:[id number] Ancef 2 GM Premix Inj 2 gm In 100 / 100 100 / 100 100 ml @ 200 mls/hr IV.SIG Q8H [facility] Rx#:[id number] Anesthesia Amount 1400 / 1400 Output: Estimated Blood Loss 300 / 300 Urine Amount (Catheter) 1150 / 1150 250 / 250 Indwelling Urethral Catheter 1150 / 1150 250 / 250 Other: Date of Last Bowel Movement 02/18/18 <JunjaydenCamden Alden - 02/20/18 09:12> Narrative: GENERAL: laying in bed, NAD SKIN: Warm and dry. CARDIOVASCULAR: Regular rate and rhythm. RESPIRATORY: No accessory muscle use. Clear to auscultation. Breath sounds equal bilaterally. GASTROINTESTINAL: Abdomen soft, non-tender, nondistended. MUSCULOSKELETAL: Left lower leg in splint. Sensation and motor function intact. Bandage c/d/i NEUROLOGICAL: Awake and alert. No obvious cranial nerve deficits. Motor grossly within normal limits. Normal speech. PSYCHIATRIC: Appropriate mood and affect; insight and judgment normal. <Camden Espinosa - 02/20/18 09:12> - Urinary Catheter Management Indwelling Urethral Catheter Cath placed during this visit: no <Dave Mccurdy - 02/20/18 13:31> yes <Camden Espinosa - 02/20/18 09:12> Reason for continuing: Other continuation reason <Camden Espinosa - 02/20/18 09:12> Insertion date: 02/19/18 <Camden Espinosa 02/20/18 09:12> Insertion time: 11:49 <Camden Espinosa - 02/20/18 09:12> Assessment and Plan - Assessment (1) Femur fracture, left Code(s): S72.92XA - Unspecified fracture of left femur, initial encounter for closed fracture Status: Acute (2) Tibia/fibula fracture Code(s): S82.209A - Unspecified fracture of shaft of unspecified tibia, initial encounter for closed fracture; S82.409A - Unspecified fracture of shaft of unspecified fibula, initial encounter for closed fracture Status: Acute (3) Abnormal chest xray Code(s): R93.8 - Abnormal findings on diagnostic imaging of other specified body structures Status: Acute (4) Dyslipidemia Code(s): E78.5 - Hyperlipidemia, unspecified Status: Acute (5) GERD (gastroesophageal reflux disease) Code(s): K21.9 - Gastro-esophageal reflux disease without esophagitis Status: Acute (6) Lymphedema Code(s): I89.0 - Lymphedema, not elsewhere classified Status: Acute (7) Nutrition, metabolism, and development symptoms Code(s): R63.8 - Other symptoms and signs concerning food and fluid intake Status: Acute <Prevatte,Dave - 02/20/18 13:31> (1) Femur fracture, left Code(s): S72.92XA - Unspecified fracture of left femur, initial encounter for closed fracture Status: Acute Plan: Femur x-ray shows comminuted nondisplaced fracture through distal femur diaphysis with posterior displacement. Previous total knee arthroplasty present -Consulted orthopedic surgery, [facility] -s/p closed reduction with trochanteric nail fixation left femur on 02/19/18 -Pain control with Percocet and morphine for breakthrough -Started on aspirin per surgery -Physical therapy (2) Tibia/fibula fracture Code(s): S82.209A - Unspecified fracture of shaft of unspecified tibia, initial encounter for closed fracture; S82.409A - Unspecified fracture of shaft of unspecified fibula, initial encounter for closed fracture Status: Acute Plan: Oblique mildly displaced fracture of distal fibula as well as comminuted fracture distal tibial metaphysis and medial malleolus noted. -Orthopedic surgery consulted -s/p closed reduction with splint immobilization left ankle -Pain control as above -Patient is on bedrest -Physical therapy (3) Abnormal chest xray Code(s): R93.8 - Abnormal findings on diagnostic imaging of other specified body structures Status: Acute Plan: Mild interstitial prominence without focal consolidation or effusion noted on chest x-ray Patient is asymptomatic and satting at 95% on room air. -Continue to monitor -IS (4) Dyslipidemia Code(s): E78.5 - Hyperlipidemia, unspecified Status: Acute Plan: Continue home simvastatin (5) GERD (gastroesophageal reflux disease) Code(s): K21.9 - Gastro-esophageal reflux disease without esophagitis Status: Acute Plan: Pantoprazole daily (6) Lymphedema Code(s): I89.0 - Lymphedema, not elsewhere classified Status: Acute Plan: Continue home triamterene/HCTZ Monitor I/O (7) Nutrition, metabolism, and development symptoms Code(s): R63.8 - Other symptoms and signs concerning food and fluid intake Status: Acute Plan: Diet: regular diet Fluids: Normal saline at 125 mL/h as patient is currently n.p.o. DVT prophylaxis: per ortho, aspirin started <Camden Espinosa - 02/20/18 09:05> - Assessment and Plan 88 y/o female with history of osteoporosis, s/p femur and tib/fib fracture and closed reduction. Will need SNF after cleared by ortho. <Camden Espinosa - 02/20/18 09:12> - Attending Attestation Patient seen and examined. 88 y/o female status post left femur fracture & left tib/fib fracture. Stable POD #1. Discussed with Dr. Espinosa. Agree with assessment and plan as documented. <Dave Mccurdy - 02/20/18 13:31> <Camden Espinosa - Last Filed: 02/20/18 09:05> (1) Femur fracture, left Qualifiers: Encounter type: initial encounter Femur location: distal Fracture type: closed (2) Tibia/fibula fracture Qualifiers: Encounter type: initial encounter Fracture type: closed Laterality: left Qualified Code(s): S82.202A - Unspecified fracture of shaft of left tibia, initial encounter for closed fracture; S82.402A - Unspecified fracture of shaft of left fibula, initial encounter for closed fracture (5) GERD (gastroesophageal reflux disease) Qualifiers: Esophagitis presence: esophagitis presence not specified Qualified Code(s): K21.9 - Gastro-esophageal reflux disease without esophagitis <Dave Mccurdy - Last Filed: 02/20/18 13:31> (1) Femur fracture, left Qualifiers: Encounter type: initial encounter Femur location: distal Fracture type: closed (2) Tibia/fibula fracture Qualifiers: Encounter type: initial encounter Fracture type: closed Laterality: left Qualified Code(s): S82.202A - Unspecified fracture of shaft of left tibia, initial encounter for closed fracture; S82.402A - Unspecified fracture of shaft of left fibula, initial encounter for closed fracture (5) GERD (gastroesophageal reflux disease) Qualifiers: Esophagitis presence: esophagitis presence not specified Qualified Code(s): K21.9 - Gastro-esophageal reflux disease without esophagitis <Camden Espinosa - Last Filed: 02/20/18 09:05> (1) Femur fracture, left Qualifiers: Encounter type: initial encounter Femur location: distal Fracture type: closed (2) Tibia/fibula fracture Qualifiers: Encounter type: initial encounter Fracture type: closed Laterality: left Qualified Code(s): S82.202A - Unspecified fracture of shaft of left tibia, initial encounter for closed fracture; S82.402A - Unspecified fracture of shaft of left fibula, initial encounter for closed fracture (5) GERD (gastroesophageal reflux disease) Qualifiers: Esophagitis presence: esophagitis presence not specified Qualified Code(s): K21.9 - Gastro-esophageal reflux disease without esophagitis <Dave Mccurdy - Last Filed: 02/20/18 13:31> (1) Femur fracture, left Qualifiers: Encounter type: initial encounter Femur location: distal Fracture type: closed (2) Tibia/fibula fracture Qualifiers: Encounter type: initial encounter Fracture type: closed Laterality: left Qualified Code(s): S82.202A - Unspecified fracture of shaft of left tibia, initial encounter for closed fracture; S82.402A - Unspecified fracture of shaft of left fibula, initial encounter for closed fracture (5) GERD (gastroesophageal reflux disease) Qualifiers: Esophagitis presence: esophagitis presence not specified Qualified Code(s): K21.9 - Gastro-esophageal reflux disease without esophagitis
[2018-02-21] MEDS: Sod Chloride 0.9% Inj 1,000 ML IV.CONT SCH (06:02)
[2018-02-21 07:19] LABS: Mean Corpuscular HGB Conc 34.2 % (32.0-36.0); Mean Corpuscular Hemoglobin 30.5 pg (27.0-34.0); Mean Corpuscular Volume 89.2 fL (80.0-100.0); Mean Platelet Volume 9.6 fL (7.0-11.0); Platelet Count 131 th/mm3 (150-450); Red Blood Count 2.31 mil/mm3 (4.00-5.30); Red Cell Distribution Width 13.6 % (11.6-17.2); White Blood Count 8.5 th/mm3 (4.0-11.0)
[2018-02-21 07:51] LABS: Hematocrit 20.6 % (35.0-46.0)
[2018-02-21 07:58] LABS: Calcium 7.3 mg/dL (8.5-10.1); Carbon Dioxide 25.8 meq/L (21.0-32.0); Potassium 3.7 meq/L (3.5-5.1)
[2018-02-21] MEDS: Pantoprazole Sodium 20 MG DR Tablet PO SCH (08:26)
[2018-02-21 08:27] LABS: Total Protein 5.5 g/dL (6.4-8.2)
[2018-02-21] MEDS: Senna/Docusate Sodium 8.6/50 MG Tablet PO SCH ×2 (08:27→20:04)
--- NOTE | 2018-02-21 10:11 | P.PNFP ---
Subjective Interval history: Patient seen and examined this morning. No acute events overnight. Pt reports pain is well controlled today. States she still has some "shaking" episodes overnight. States she is not cold, but states morphine helps, may be related to pain. Nurse reports some confusion overnight, but oriented this morning. Denies any chest pain, SOB, abdominal pain. Pain well controlled. Passing flatus, no BM. <Camden Espinosa - 02/21/18 10:10> Results - Labs Result diagrams: 02/21/18 14:40 02/21/18 06:48 <Dave Mccurdy - 02/21/18 16:12> Abnormal lab results 02/21/18 02/21/18 02/21/18 Range/Units 06:48 06:48 14:40 RBC 2.31 L (4.00-5.30) mil/mm3 Hgb 7.0 L D 6.9 L* (11.6-15.3) gm/dL Hct 20.6 L* 20.6 L* (35.0-46.0) % Plt Count 131 L (150-450) th/mm3 BUN 22 H (7-18) mg/dL Estimated GFR 69 L (>89) mL/min Calcium 7.3 L* (8.5-10.1) mg/dL Prot Corrected Calcium 8.2 L (8.5-10.1) mg/dL Total Protein 5.5 L D (6.4-8.2) g/dL Short CBC 02/21/18 02/21/18 Range/Units 06:48 14:40 WBC 8.5 (4.0-11.0) th/mm3 Hgb 7.0 L D 6.9 L* (11.6-15.3) gm/dL Hct 20.6 L* 20.6 L* (35.0-46.0) % Plt Count 131 L (150-450) th/mm3 BMP 02/21/18 06:48 Sodium 136 Potassium 3.7 D Chloride 102 Carbon Dioxide 25.8 BUN 22 H Creatinine 0.79 Calcium 7.3 L* <Dave Mccurdy - 02/21/18 16:12> Abnormal lab results 02/21/18 02/21/18 Range/Units 06:48 06:48 RBC 2.31 L (4.00-5.30) mil/mm3 Hgb 7.0 L D (11.6-15.3) gm/dL Hct 20.6 L* (35.0-46.0) % Plt Count 131 L (150-450) th/mm3 BUN 22 H (7-18) mg/dL Estimated GFR 69 L (>89) mL/min Calcium 7.3 L* (8.5-10.1) mg/dL Prot Corrected Calcium 8.2 L (8.5-10.1) mg/dL Total Protein 5.5 L D (6.4-8.2) g/dL Short CBC 02/21/18 Range/Units 06:48 WBC 8.5 (4.0-11.0) th/mm3 Hgb 7.0 L D (11.6-15.3) gm/dL Hct 20.6 L* (35.0-46.0) % Plt Count 131 L (150-450) th/mm3 BMP 02/21/18 06:48 Sodium 136 Potassium 3.7 D Chloride 102 Carbon Dioxide 25.8 BUN 22 H Creatinine 0.79 Calcium 7.3 L* <Camden Espinosa - 02/21/18 10:10> Physical Exam Vital signs: Vital Signs 02/20/18 20:19 02/20/18 22:00 02/20/18 23:05 Temperature 98.0 F 98.4 F Pulse Rate 87 89 Respiratory Rate 18 18 18 Blood Pressure 113/54 L 136/75 Pulse Oximetry 97 96 02/21/18 00:15 02/21/18 01:44 02/21/18 04:28 Temperature Pulse Rate 84 78 Respiratory Rate 17 Blood Pressure Pulse Oximetry 02/21/18 04:57 02/21/18 05:54 02/21/18 08:00 Temperature 97.9 F 97.8 F Pulse Rate 99 H 92 H Respiratory Rate 18 18 17 Blood Pressure 163/77 H 123/58 L Pulse Oximetry 97 96 02/21/18 08:27 02/21/18 12:00 Temperature 97.6 F Pulse Rate 86 Respiratory Rate 18 Blood Pressure 146/67 H Pulse Oximetry 98 95 Intake & Output 02/20/18 02/21/18 02/21/18 18:59 06:59 18:59 Intake Total 440 / 440 2240 / 2240 Output Total 400 / 400 275 / 275 Balance 40 / 40 1965 / 1965 Weight 88.6 kg Intake: IV 200 / 200 1999 NS Inj 1,000 ML @ 125 mls/hr IV 1999 .CONT .Q8H INDERJIT Rx#:[id number] Ancef 2 GM Premix Inj 2 gm In 200 / 200 100 ml @ 200 mls/hr IV.SIG Q8H INDERJIT Rx#:[id number] Oral 240 / 240 240 / 240 Output: Urine 400 / 400 275 / 275 Other: # Voids 3 Date of Last Bowel Movement 02/19/18 # Bowel Movements 0 0 <LiamattAmilcar nicolasDave - 02/21/18 16:12> Vital Signs 02/20/18 12:00 02/20/18 16:00 02/20/18 20:19 Temperature 98.2 F 98.0 F 98.0 F Pulse Rate 87 89 87 Respiratory Rate 16 16 18 Blood Pressure 90/55 L 122/60 113/54 L Pulse Oximetry 90 L 91 L 97 02/20/18 22:00 02/20/18 23:05 02/21/18 00:15 Temperature 98.4 F Pulse Rate 89 84 Respiratory Rate 18 18 Blood Pressure 136/75 Pulse Oximetry 96 02/21/18 01:44 02/21/18 04:28 02/21/18 04:57 Temperature 97.9 F Pulse Rate 78 99 H Respiratory Rate 17 18 Blood Pressure 163/77 H Pulse Oximetry 97 02/21/18 05:54 02/21/18 08:00 02/21/18 08:27 Temperature 97.8 F Pulse Rate 92 H Respiratory Rate 18 17 Blood Pressure 123/58 L Pulse Oximetry 96 98 Intake & Output 02/20/18 02/21/18 02/21/18 18:59 06:59 18:59 Intake Total 440 / 440 2240 / 2240 Output Total 400 / 400 275 / 275 Balance 40 40 1964 Weight 88.6 kg Intake: IV 200 / 200 1999 NS Inj 1,000 ML @ 125 mls/hr IV 1999 .CONT .Q8H INDERJIT Rx#:[id number] Ancef 2 GM Premix Inj 2 gm In 200 / 200 100 ml @ 200 mls/hr IV.SIG Q8H INDERJIT Rx#:[id number] Oral 240 / 240 240 / 240 Output: Urine 400 / 400 275 / 275 Other: # Voids 3 Date of Last Bowel Movement 02/19/18 # Bowel Movements 0 0 <QianagrahamCamden 02/21/18 10:10> Narrative: GENERAL: laying in bed, NAD SKIN: Warm and dry. CARDIOVASCULAR: Regular rate and rhythm. RESPIRATORY: No accessory muscle use. Clear to auscultation. Breath sounds equal bilaterally. GASTROINTESTINAL: Abdomen soft, non-tender, nondistended. MUSCULOSKELETAL: Left lower leg in splint. Sensation and motor function intact. Bandage c/d/i NEUROLOGICAL: Awake and alert. Orientedx3. No obvious cranial nerve deficits. Normal speech. PSYCHIATRIC: Appropriate mood and affect; insight and judgment normal. <JunjaydenCamden Alden 02/21/18 11:06> - Urinary Catheter Management Indwelling Urethral Catheter Cath placed during this visit: no <Dave Mccurdy 02/21/18 16:12> yes, but has since been removed by the nurse <JunjaydenCamden Alden 02/21/18 13:18> Reason for continuing: Decision to DC catheter <Camden Espinosa 02/21/18 10 :10> Insertion date: 02/19/18 <Camden Espinosa 02/21/18 10:10> Insertion time: 11:49 <JunjaydenCamden Alden 02/21/18 10:10> Removal date: 02/20/18 <Camden Espinosa 02/21/18 10:10> Removal time: 14:27 <JunjaydenCamden Alden 02/21/18 10:10> Assessment and Plan - Assessment (1) Femur fracture, left Code(s): S72.92XA - Unspecified fracture of left femur, initial encounter for closed fracture Status: Acute (2) Tibia/fibula fracture Code(s): S82.209A - Unspecified fracture of shaft of unspecified tibia, initial encounter for closed fracture; S82.409A - Unspecified fracture of shaft of unspecified fibula, initial encounter for closed fracture Status: Acute (3) Anemia Code(s): D64.9 - Anemia, unspecified Status: Acute (4) Abnormal chest xray Code(s): R93.8 - Abnormal findings on diagnostic imaging of other specified body structures Status: Acute (5) Dyslipidemia Code(s): E78.5 - Hyperlipidemia, unspecified Status: Acute (6) GERD (gastroesophageal reflux disease) Code(s): K21.9 - Gastro-esophageal reflux disease without esophagitis Status: Acute (7) Lymphedema Code(s): I89.0 - Lymphedema, not elsewhere classified Status: Acute (8) Nutrition, metabolism, and development symptoms Code(s): R63.8 - Other symptoms and signs concerning food and fluid intake Status: Acute <LiamattAmilcar nicolasDave - 02/21/18 16:12> (1) Femur fracture, left Code(s): S72.92XA - Unspecified fracture of left femur, initial encounter for closed fracture Status: Acute Plan: Femur x-ray shows comminuted nondisplaced fracture through distal femur diaphysis with posterior displacement. Previous total knee arthroplasty present -Consulted orthopedic surgery, appreciate recs -s/p closed reduction with trochanteric nail fixation left femur on 02/19/18 -POD#2 -Pain control with Percocet and morphine for breakthrough -Started on aspirin per surgery -Physical therapy -History of osteoporosis, but will discuss possible workup for pathologic fracture (2) Tibia/fibula fracture Code(s): S82.209A - Unspecified fracture of shaft of unspecified tibia, initial encounter for closed fracture; S82.409A - Unspecified fracture of shaft of unspecified fibula, initial encounter for closed fracture Status: Acute Plan: Oblique mildly displaced fracture of distal fibula as well as comminuted fracture distal tibial metaphysis and medial malleolus noted. -Orthopedic surgery consulted -s/p closed reduction with splint immobilization left ankle on 02/19 -POD#2 -Pain control as above -Patient is on bedrest -Physical therapy (3) Anemia Code(s): D64.9 - Anemia, unspecified Status: Acute Plan: Hb 7.0/Hct 20.6 this morning. Down from 9.1 yesterday. Suspect due to post-op No cardiac history Pt is asymptomatic No signs of active bleeding -Will recheck H/H at 1400, if dropping, will transfuse 1 unit pRBC (4) Abnormal chest xray Code(s): R93.8 - Abnormal findings on diagnostic imaging of other specified body structures Status: Acute Plan: Mild interstitial prominence without focal consolidation or effusion noted on chest x-ray Patient is asymptomatic with normal O2 sats on room air -Continue to monitor -IS (5) Dyslipidemia Code(s): E78.5 - Hyperlipidemia, unspecified Status: Acute Plan: Continue home simvastatin (6) GERD (gastroesophageal reflux disease) Code(s): K21.9 - Gastro-esophageal reflux disease without esophagitis Status: Acute Plan: Pantoprazole daily (7) Lymphedema Code(s): I89.0 - Lymphedema, not elsewhere classified Status: Acute Plan: Continue home triamterene/HCTZ Monitor I/O (8) Nutrition, metabolism, and development symptoms Code(s): R63.8 - Other symptoms and signs concerning food and fluid intake Status: Acute Plan: Diet: regular diet Fluids: Normal saline at 125 mL/h Electrolytes: hypocalcemia, replacing DVT prophylaxis: per ortho, aspirin started <Camden Espinosa - 02/21/18 13:17> - Assessment and Plan 88 y/o female with history of osteoporosis, s/p femur and tib/fib fracture and closed reduction. Will need SNF after cleared by ortho. <Camden Espinosa - 02/21/18 11:18> - Attending Attestation Patient seen and examined. Discussed with Dr. Espinosa. Agree with assessment and plan as documented. <Dvae Mccurdy - 02/21/18 16:12> <Camden Espinosa - Last Filed: 02/21/18 13:17> (1) Femur fracture, left Qualifiers: Encounter type: initial encounter Femur location: distal Fracture type: closed (2) Tibia/fibula fracture Qualifiers: Encounter type: initial encounter Fracture type: closed Laterality: left Qualified Code(s): S82.202A - Unspecified fracture of shaft of left tibia, initial encounter for closed fracture; S82.402A - Unspecified fracture of shaft of left fibula, initial encounter for closed fracture (6) GERD (gastroesophageal reflux disease) Qualifiers: Esophagitis presence: esophagitis presence not specified Qualified Code(s): K21.9 - Gastro-esophageal reflux disease without esophagitis <Prevatte,Dave - Last Filed: 02/21/18 16:12> (1) Femur fracture, left Qualifiers: Encounter type: initial encounter Femur location: distal Fracture type: closed (2) Tibia/fibula fracture Qualifiers: Encounter type: initial encounter Fracture type: closed Laterality: left Qualified Code(s): S82.202A - Unspecified fracture of shaft of left tibia, initial encounter for closed fracture; S82.402A - Unspecified fracture of shaft of left fibula, initial encounter for closed fracture (6) GERD (gastroesophageal reflux disease) Qualifiers: Esophagitis presence: esophagitis presence not specified Qualified Code(s): K21.9 - Gastro-esophageal reflux disease without esophagitis <Camden Espinosa - Last Filed: 02/21/18 13:17> (1) Femur fracture, left Qualifiers: Encounter type: initial encounter Femur location: distal Fracture type: closed (2) Tibia/fibula fracture Qualifiers: Encounter type: initial encounter Fracture type: closed Laterality: left Qualified Code(s): S82.202A - Unspecified fracture of shaft of left tibia, initial encounter for closed fracture; S82.402A - Unspecified fracture of shaft of left fibula, initial encounter for closed fracture (6) GERD (gastroesophageal reflux disease) Qualifiers: Esophagitis presence: esophagitis presence not specified Qualified Code(s): K21.9 - Gastro-esophageal reflux disease without esophagitis <Prevatte,Dave - Last Filed: 02/21/18 16:12> (1) Femur fracture, left Qualifiers: Encounter type: initial encounter Femur location: distal Fracture type: closed (2) Tibia/fibula fracture Qualifiers: Encounter type: initial encounter Fracture type: closed Laterality: left Qualified Code(s): S82.202A - Unspecified fracture of shaft of left tibia, initial encounter for closed fracture; S82.402A - Unspecified fracture of shaft of left fibula, initial encounter for closed fracture (6) GERD (gastroesophageal reflux disease) Qualifiers: Esophagitis presence: esophagitis presence not specified Qualified Code(s): K21.9 - Gastro-esophageal reflux disease without esophagitis
--- NOTE | 2018-02-21 11:07 | P.PNOP ---
Subjective Interval history: Patient is awake and alert and working with PT. Patient and nurse both report that she had a "episode" last night in which she tried to pull out her IV, dressomg as well as daniela. Patient states she is feeling much better today. Physical Exam Vital signs: Vital Signs 02/20/18 12:00 02/20/18 16:00 02/20/18 20:19 Temperature 98.2 F 98.0 F 98.0 F Pulse Rate 87 89 87 Respiratory Rate 16 16 18 Blood Pressure 90/55 L 122/60 113/54 L Pulse Oximetry 90 L 91 L 97 02/20/18 22:00 02/20/18 23:05 02/21/18 00:15 Temperature 98.4 F Pulse Rate 89 84 Respiratory Rate 18 18 Blood Pressure 136/75 Pulse Oximetry 96 02/21/18 01:44 02/21/18 04:28 02/21/18 04:57 Temperature 97.9 F Pulse Rate 78 99 H Respiratory Rate 17 18 Blood Pressure 163/77 H Pulse Oximetry 97 02/21/18 05:54 02/21/18 08:00 02/21/18 08:27 Temperature 97.8 F Pulse Rate 92 H Respiratory Rate 18 17 Blood Pressure 123/58 L Pulse Oximetry 96 98 Intake & Output 02/20/18 02/21/18 02/21/18 18:59 06:59 18:59 Intake Total 440 / 440 2240 / 2240 Output Total 400 / 400 275 / 275 Balance 40 / 40 1964 / 1964 Weight 88.6 kg Intake: IV 200 / 200 1999 / 1999 NS Inj 1,000 ML @ 125 mls/hr IV 1999 .CONT .Q8H INDERJIT Rx#:[id number] Ancef 2 GM Premix Inj 2 gm In 200 / 200 100 ml @ 200 mls/hr IV.SIG Q8H INDERJIT Rx#:[id number] Oral 240 / 240 240 / 240 Output: Urine 400 / 400 275 / 275 Other: # Voids 3 Date of Last Bowel Movement 02/19/18 # Bowel Movements 0 0 Narrative: GENERAL: laying in bed, NAD SKIN: Warm and dry. CARDIOVASCULAR: Regular rate and rhythm. RESPIRATORY: No accessory muscle use. Clear to auscultation. Breath sounds equal bilaterally. GASTROINTESTINAL: Abdomen soft, non-tender, nondistended. MUSCULOSKELETAL: Left lower leg in splint. Sensation and motor function intact. Dressing c/d/i,NVI NEUROLOGICAL: Awake and alert. Orientedx3. No obvious cranial nerve deficits. Normal speech. PSYCHIATRIC: Appropriate mood and affect; insight and judgment normal. - Urinary Catheter Management Indwelling Urethral Catheter Cath placed during this visit: yes, but has since been removed by the nurse Reason for continuing: Decision to DC catheter Insertion date: 02/19/18 Insertion time: 11:49 Removal date: 02/20/18 Removal time: 14:27 Results - Labs CBC & Chem 7: 02/21/18 06:48 02/21/18 06:48 Laboratory Results - last 24 hr 02/21/18 02/21/18 06:48 06:48 WBC 8.5 RBC 2.31 L Hgb 7.0 L D Hct 20.6 L* MCV 89.2 MCH 30.5 MCHC 34.2 RDW 13.6 Plt Count 131 L MPV 9.6 Sodium 136 Potassium 3.7 D Chloride 102 Carbon Dioxide 25.8 Anion Gap 8 BUN 22 H Creatinine 0.79 Estimated GFR 69 L Random Glucose 104 Calcium 7.3 L* Prot Corrected Calcium 8.2 L Total Protein 5.5 L D Microbiology 02/19/18 11:48 Catheterized Urine Urine Culture - Final pleomorphic gram positive rods - Imaging Impressions Ankle X-Ray 02/19/18 00:00 CONCLUSION: Gross anatomical alignment. Femur X-Ray 02/19/18 00:00 CONCLUSION: Intact postsurgical changes with gross anatomical alignment. Hip X-Ray 02/19/18 00:00 CONCLUSION: No evidence of recent bony injury. Ankle X-Ray 02/19/18 11:33 CONCLUSION: Comminuted tibia and fibular fractures. Tibia/Fibula X-Ray 02/19/18 11:34 CONCLUSION: Distal tibia and fibular fractures are noted. - Procedures Closed reduction with intramedullary rodding left femur 02/19/18 Closed reduction and splinting left ankle - ABG Attestation: I personally reviewed and interpreted this ABG as follows: Assessment and Plan - Assessment and Plan POD #2 Closed reduction with intramedullary rodding left femur POD #2 Closed reduction and splinting left ankle. 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
[2018-02-21 16:06] LABS: Hematocrit 20.6 % (35.0-46.0); Hemoglobin 6.9 gm/dL (11.6-15.3)
[2018-02-21] MEDS ORDERED: Sodium Chlor 0.9% Inj 250 ML IV.SIG SCH (17:00)
[2018-02-22 06:50] LABS: Hematocrit 25.3 % (35.0-46.0); Hemoglobin 8.6 gm/dL (11.6-15.3); Mean Corpuscular HGB Conc 34.2 % (32.0-36.0); Mean Corpuscular Hemoglobin 30.2 pg (27.0-34.0); Mean Corpuscular Volume 88.4 fL (80.0-100.0); Mean Platelet Volume 9.2 fL (7.0-11.0); Platelet Count 156 th/mm3 (150-450); Red Blood Count 2.86 mil/mm3 (4.00-5.30); Red Cell Distribution Width 13.5 % (11.6-17.2)
[2018-02-22 07:06] LABS: Calcium 7.4 mg/dL (8.5-10.1); Carbon Dioxide 27.9 meq/L (21.0-32.0); Potassium 3.4 meq/L (3.5-5.1)
[2018-02-22 07:22] LABS: Total Protein 5.9 g/dL (6.4-8.2)
--- NOTE | 2018-02-22 08:29 | P.PNFP ---
Subjective Interval history: Patient seen and examined this morning. Pt received 1 unit pRBC overnight. Tolerated well without reaction. This morning, states pain is well controlled. Ready to go to rehab. Denies any chest pain, SOB, abdominal pain. <Camden Espinosa - 02/22/18 08:29> Results - Labs Result diagrams: 02/22/18 05:45 02/22/18 05:45 <Dave Mccurdy - 02/22/18 16:19> Abnormal lab results 02/21/18 02/22/18 02/22/18 Range/Units 17:05 05:45 05:45 RBC 2.86 L (4.00-5.30) mil/mm3 Hgb 8.6 L (11.6-15.3) gm/dL Hct 25.3 L (35.0-46.0) % Potassium 3.4 L (3.5-5.1) meq/L Estimated GFR 72 L (>89) mL/min Random Glucose 114 H (74-106) mg/dL Calcium 7.4 L* (8.5-10.1) mg/dL Prot Corrected Calcium 8.1 L (8.5-10.1) mg/dL Total Protein 5.9 L (6.4-8.2) g/dL MTS Gel Crossmatch See Detail Short CBC 02/22/18 Range/Units 05:45 WBC 9.0 (4.0-11.0) th/mm3 Hgb 8.6 L (11.6-15.3) gm/dL Hct 25.3 L (35.0-46.0) % Plt Count 156 (150-450) th/mm3 BMP 02/22/18 05:45 Sodium 136 Potassium 3.4 L Chloride 99 Carbon Dioxide 27.9 BUN 15 Creatinine 0.76 Calcium 7.4 L* <Dave Mccurdy - 02/22/18 16:19> Abnormal lab results 02/21/18 02/21/18 02/21/18 Range/Units 06:48 14:40 17:05 RBC (4.00-5.30) mil/mm3 Hgb 6.9 L* (11.6-15.3) gm/dL Hct 20.6 L* (35.0-46.0) % Potassium (3.5-5.1) meq/L Estimated GFR (>89) mL/min Random Glucose (74-106) mg/dL Calcium (8.5-10.1) mg/dL Prot Corrected Calcium 8.2 L (8.5-10.1) mg/dL Total Protein 5.5 L D (6.4-8.2) g/dL MTS Gel Crossmatch See Detail 02/22/18 02/22/18 Range/Units 05:45 05:45 RBC 2.86 L (4.00-5.30) mil/mm3 Hgb 8.6 L (11.6-15.3) gm/dL Hct 25.3 L (35.0-46.0) % Potassium 3.4 L (3.5-5.1) meq/L Estimated GFR 72 L (>89) mL/min Random Glucose 114 H (74-106) mg/dL Calcium 7.4 L* (8.5-10.1) mg/dL Prot Corrected Calcium 8.1 L (8.5-10.1) mg/dL Total Protein 5.9 L (6.4-8.2) g/dL MTS Gel Crossmatch Short CBC 02/21/18 02/22/18 Range/Units 14:40 05:45 WBC 9.0 (4.0-11.0) th/mm3 Hgb 6.9 L* 8.6 L (11.6-15.3) gm/dL Hct 20.6 L* 25.3 L (35.0-46.0) % Plt Count 156 (150-450) th/mm3 BMP 02/22/18 05:45 Sodium 136 Potassium 3.4 L Chloride 99 Carbon Dioxide 27.9 BUN 15 Creatinine 0.76 Calcium 7.4 L* <Camden Espinosa - 02/22/18 08:29> Physical Exam Vital signs: Vital Signs 02/21/18 18:03 02/21/18 18:23 02/21/18 19:31 Temperature 98.6 F 98.9 F 98.4 F Pulse Rate 88 87 84 Respiratory Rate 18 18 18 Blood Pressure 110/54 L 116/56 L 122/58 L Pulse Oximetry 96 95 95 02/21/18 20:36 02/21/18 21:31 02/21/18 22:57 Temperature 98.3 F Pulse Rate 81 Respiratory Rate 18 17 Blood Pressure 130/60 Pulse Oximetry 96 94 L 02/21/18 23:07 02/22/18 03:00 02/22/18 03:51 Temperature 97.7 F 97.9 F Pulse Rate 85 84 81 Respiratory Rate 18 17 Blood Pressure 132/66 151/72 H Pulse Oximetry 96 96 02/22/18 07:50 02/22/18 08:39 02/22/18 09:16 Temperature 97.8 F Pulse Rate 82 79 Respiratory Rate 18 18 Blood Pressure 184/81 H Pulse Oximetry 97 02/22/18 11:55 02/22/18 12:00 Temperature 98.1 F 98.1 F Pulse Rate 77 77 Respiratory Rate 16 17 Blood Pressure 116/59 L 116/59 L Pulse Oximetry 96 96 Intake & Output 02/21/18 02/22/18 02/22/18 18:59 06:59 18:59 Intake Total 600 / 600 760 / 760 250 / 250 Output Total 1570 / 1570 Balance -970 / -970 760 / 760 250 / 250 Weight 88.6 kg Intake: IV 250 / 250 NS Inj 250 ML @ 15 mls/hr IV. 250 / 250 SIG ONCE INDERJIT Rx#:[id number] Oral 600 / 600 360 / 360 Intake (Blood Product) Amt 0 / 0 400 / 400 Rbc As-3 Leukoreduced Unit 0 / 0 400 / 400 [id number] Output: Urine 1570 / 1570 Other: # Voids 10 Date of Last Bowel Movement 02/19/18 02/19/18 # Bowel Movements 0 <Prevatte,Dave - 02/22/18 16:19> Vital Signs 02/21/18 08:27 02/21/18 12:00 02/21/18 16:00 Temperature 97.6 F 98.1 F Pulse Rate 86 81 Respiratory Rate 18 16 Blood Pressure 146/67 H 107/68 Pulse Oximetry 98 95 94 L 02/21/18 18:03 02/21/18 18:23 02/21/18 19:31 Temperature 98.6 F 98.9 F 98.4 F Pulse Rate 88 87 84 Respiratory Rate 18 18 18 Blood Pressure 110/54 L 116/56 L 122/58 L Pulse Oximetry 96 95 95 02/21/18 20:36 02/21/18 21:31 02/21/18 22:57 Temperature 98.3 F Pulse Rate 81 Respiratory Rate 18 17 Blood Pressure 130/60 Pulse Oximetry 96 94 L 02/21/18 23:07 02/22/18 03:00 02/22/18 03:51 Temperature 97.7 F 97.9 F Pulse Rate 85 84 81 Respiratory Rate 18 17 Blood Pressure 132/66 151/72 H Pulse Oximetry 96 96 Intake & Output 02/21/18 02/22/18 02/22/18 18:59 06:59 18:59 Intake Total 600 / 600 760 / 760 Output Total 1570 / 1570 Balance -970 / -970 760 / 760 Weight 88.6 kg Intake: Oral 600 / 600 360 / 360 Intake (Blood Product) Amt 0 / 0 400 / 400 Rbc As-3 Leukoreduced Unit 0 / 0 400 / 400 [id number] Output: Urine 1570 / 1570 Other: # Voids 10 Date of Last Bowel Movement 02/19/18 02/19/18 # Bowel Movements 0 <Camden Espinosa 02/22/18 08:29> Narrative: GENERAL: laying in bed, NAD SKIN: Warm and dry. CARDIOVASCULAR: Regular rate and rhythm. RESPIRATORY: No accessory muscle use. Clear to auscultation. Breath sounds equal bilaterally. GASTROINTESTINAL: Abdomen soft, non-tender, nondistended. BS+ MUSCULOSKELETAL: Left lower leg in splint. Sensation and motor function intact. Bandage on left upper leg c/d/i NEUROLOGICAL: Awake and alert. Oriented x3. No obvious cranial nerve deficits. Normal speech. PSYCHIATRIC: Appropriate mood and affect; insight and judgment normal. <Camden Espinosa - 02/22/18 08:29> - Urinary Catheter Management Indwelling Urethral Catheter Cath placed during this visit: no <Dave Mccurdy - 02/22/18 16:19> yes, but has since been removed by the nurse <Camden Espinosa - 02/22/18 09:01> Reason for continuing: Decision to DC catheter <Camden Espinosa 02/22/18 08 :29> Insertion date: 02/19/18 <Camden Espinosa 02/22/18 08:29> Insertion time: 11:49 <Camden Espinosa 02/22/18 08:29> Removal date: 02/20/18 <Camden Espinosa 02/22/18 08:29> Removal time: 14:27 <Camden Espinosa - 02/22/18 08:29> Assessment and Plan - Assessment (1) Femur fracture, left Code(s): S72.92XA - Unspecified fracture of left femur, initial encounter for closed fracture Status: Acute (2) Tibia/fibula fracture Code(s): S82.209A - Unspecified fracture of shaft of unspecified tibia, initial encounter for closed fracture; S82.409A - Unspecified fracture of shaft of unspecified fibula, initial encounter for closed fracture Status: Acute (3) Anemia Code(s): D64.9 - Anemia, unspecified Status: Acute (4) Abnormal chest xray Code(s): R93.8 - Abnormal findings on diagnostic imaging of other specified body structures Status: Acute (5) Dyslipidemia Code(s): E78.5 - Hyperlipidemia, unspecified Status: Chronic (6) GERD (gastroesophageal reflux disease) Code(s): K21.9 - Gastro-esophageal reflux disease without esophagitis Status: Chronic (7) Lymphedema Code(s): I89.0 - Lymphedema, not elsewhere classified Status: Acute (8) Nutrition, metabolism, and development symptoms Code(s): R63.8 - Other symptoms and signs concerning food and fluid intake Status: Acute <Dave Mccurdy - 02/22/18 16:19> (1) Femur fracture, left Code(s): S72.92XA - Unspecified fracture of left femur, initial encounter for closed fracture Status: Acute Plan: Femur x-ray shows comminuted nondisplaced fracture through distal femur diaphysis with posterior displacement. Previous total knee arthroplasty present -Consulted orthopedic surgery, appreciate recs -s/p closed reduction with trochanteric nail fixation left femur on 02/19/18 -POD#3 -cleared for d/c -Pain control with Percocet and morphine for breakthrough -Started on aspirin per surgery -Physical therapy recommends SNF, accepted to [facility] -Consider workup for pathologic fracture outpatient if needed (2) Tibia/fibula fracture Code(s): S82.209A - Unspecified fracture of shaft of unspecified tibia, initial encounter for closed fracture; S82.409A - Unspecified fracture of shaft of unspecified fibula, initial encounter for closed fracture Status: Acute Plan: Oblique mildly displaced fracture of distal fibula as well as comminuted fracture distal tibial metaphysis and medial malleolus noted. -Orthopedic surgery consulted -s/p closed reduction with splint immobilization left ankle on 02/19 -POD#3 -Pain control as above -Patient is on bedrest -Physical therapy (3) Anemia Code(s): D64.9 - Anemia, unspecified Status: Acute Plan: Hb 7.0/Hct 20.6 9/4. Down from 9.1. Suspect due to post-op -->6.9 on repeat yesterday afternoon -Transfused 1 unit pRBC -Repeat 8.6 this morning No cardiac history Pt is asymptomatic No signs of active bleeding (4) Abnormal chest xray Code(s): R93.8 - Abnormal findings on diagnostic imaging of other specified body structures Status: Acute Plan: Mild interstitial prominence without focal consolidation or effusion noted on chest x-ray Patient is asymptomatic with normal O2 sats on room air -Continue to monitor -IS (5) Dyslipidemia Code(s): E78.5 - Hyperlipidemia, unspecified Status: Acute Plan: Continue home simvastatin (6) GERD (gastroesophageal reflux disease) Code(s): K21.9 - Gastro-esophageal reflux disease without esophagitis Status: Acute Plan: Pantoprazole daily (7) Lymphedema Code(s): I89.0 - Lymphedema, not elsewhere classified Status: Acute Plan: Continue home triamterene/HCTZ Monitor I/O (8) Nutrition, metabolism, and development symptoms Code(s): R63.8 - Other symptoms and signs concerning food and fluid intake Status: Acute Plan: Diet: regular diet Fluids: tolerating PO Electrolytes: hypocalcemia, hypokalemia replacing DVT prophylaxis: per ortho, aspirin started <Camden Espinosa - 02/22/18 09:01> - Assessment and Plan 88 y/o female with history of osteoporosis, s/p femur and tib/fib fracture and closed reduction. Will need SNF after cleared by ortho. <Camden Espinosa - 02/22/18 08:29> - Attending Attestation Patient seen and examined. Discussed with Dr. Espinosa. Agree with assessment and plan as documented. <Dave Mccurdy - 02/22/18 16:19> <Camden Espinosa - Last Filed: 02/22/18 09:01> (1) Femur fracture, left Qualifiers: Encounter type: initial encounter Femur location: distal Fracture type: closed (2) Tibia/fibula fracture Qualifiers: Encounter type: initial encounter Fracture type: closed Laterality: left Qualified Code(s): S82.202A - Unspecified fracture of shaft of left tibia, initial encounter for closed fracture; S82.402A - Unspecified fracture of shaft of left fibula, initial encounter for closed fracture (6) GERD (gastroesophageal reflux disease) Qualifiers: Esophagitis presence: esophagitis presence not specified Qualified Code(s): K21.9 - Gastro-esophageal reflux disease without esophagitis <Dave Mccurdy - Last Filed: 02/22/18 16:19> (1) Femur fracture, left Qualifiers: Encounter type: initial encounter Femur location: distal Fracture type: closed (2) Tibia/fibula fracture Qualifiers: Encounter type: initial encounter Fracture type: closed Laterality: left Qualified Code(s): S82.202A - Unspecified fracture of shaft of left tibia, initial encounter for closed fracture; S82.402A - Unspecified fracture of shaft of left fibula, initial encounter for closed fracture (3) Anemia Qualifiers: Anemia type: other cause Other causes of anemia: acute posthemorrhagic Qualified Code(s): D62 - Acute posthemorrhagic anemia (6) GERD (gastroesophageal reflux disease) Qualifiers: Esophagitis presence: esophagitis presence not specified Qualified Code(s): K21.9 - Gastro-esophageal reflux disease without esophagitis <Camden Espinosa Alden - Last Filed: 02/22/18 09:01> (1) Femur fracture, left Qualifiers: Encounter type: initial encounter Femur location: distal Fracture type: closed (2) Tibia/fibula fracture Qualifiers: Encounter type: initial encounter Fracture type: closed Laterality: left Qualified Code(s): S82.202A - Unspecified fracture of shaft of left tibia, initial encounter for closed fracture; S82.402A - Unspecified fracture of shaft of left fibula, initial encounter for closed fracture (6) GERD (gastroesophageal reflux disease) Qualifiers: Esophagitis presence: esophagitis presence not specified Qualified Code(s): K21.9 - Gastro-esophageal reflux disease without esophagitis <Dave Mccurdy - Last Filed: 02/22/18 16:19> (1) Femur fracture, left Qualifiers: Encounter type: initial encounter Femur location: distal Fracture type: closed (2) Tibia/fibula fracture Qualifiers: Encounter type: initial encounter Fracture type: closed Laterality: left Qualified Code(s): S82.202A - Unspecified fracture of shaft of left tibia, initial encounter for closed fracture; S82.402A - Unspecified fracture of shaft of left fibula, initial encounter for closed fracture (3) Anemia Qualifiers: Anemia type: other cause Other causes of anemia: acute posthemorrhagic Qualified Code(s): D62 - Acute posthemorrhagic anemia (6) GERD (gastroesophageal reflux disease) Qualifiers: Esophagitis presence: esophagitis presence not specified Qualified Code(s): K21.9 - Gastro-esophageal reflux disease without esophagitis
[2018-02-22] MEDS: Senna/Docusate Sodium 8.6/50 MG Tablet PO SCH (08:45)
[2018-02-22] MEDS: Pantoprazole Sodium 20 MG DR Tablet PO SCH (08:45)
--- NOTE | 2018-02-22 10:54 | P.DS ---
Date of admission: 02/19/18 11:09 Primary care physician: Soy Baer MD, R2 Anticipated date of discharge: 02/22/18 Brief History from admission: Dr Soy Baer is PCP Ms. Peacock is a 88yof with known osteopenia/osteoporosis who presents with pain in L leg. She reports that this morning at about 9:00 she was chasing her grandchild and went to lift her leg. She heard a pop and grabbed shelving unit to slide to the ground. No direct blow to the leg. Pain felt in the L ankle, but nothing in the knee or hip. She did not hit her head or pass out. She has not ambulated since the incident. At baseline she ambulates without assistance. H/o kyphoplasty. Is currently on Calcitonin. Has not eaten anything today. PMH: Dyslipidemia Lymphedema Insomnia GERD [place] Osteopenia/Osteoporosis Meds: Simvastatin Temazepam Omeprazole Triam/HCTZ Calcitonin Sx: L TKR Hysterectomy Cholecystectomy Hernia repair Tonsillectomy Kyphoplasty x2 FMH: Mother- heart problems Social: Tobacco- former smoker EtOH- none Drugs- none Lives at home with her daughter. DS: Diagnosis - Discharge Diagnosis (1) Femur fracture, left Status: Acute Diagnosis: Principal (2) Tibia/fibula fracture Status: Acute Diagnosis: Principal (3) Anemia Status: Acute Diagnosis: Secondary (4) Abnormal chest xray Status: Acute Diagnosis: Secondary (5) Dyslipidemia Status: Chronic Diagnosis: Secondary (6) GERD (gastroesophageal reflux disease) Status: Chronic Diagnosis: Secondary (7) Lymphedema Status: Acute Diagnosis: Secondary (8) Nutrition, metabolism, and development symptoms Status: Acute Diagnosis: Secondary DS: Summary Hospital Course: 88-year-old female with history of osteoporosis, GERD, dyslipidemia presented to the ER after hearing a pop in her left leg and pain. Patient was evaluated in the ER and x-ray showed left comminuted nondisplaced fracture through the distal femur as well as a mildly displaced fracture of the distal fibula and distal tibia and medial malleolus. Patient was admitted and orthopedics were consulted. They took patient back for a closed reduction with trochanteric nail fixation of the left femur as well as close reduction with splint immobilization of the left ankle. Patient tolerated procedure well and was started on aspirin for DVT prophylaxis. Patient's hemoglobin trended down to 6.9, patient was transfused 1 unit with appropriate stabilization of the hemoglobin after that. Physical therapy recommended SNF placement and was accepted at [facility], where she will be discharged. - Time Spent with Patient Total time spent providing and/or coordinating discharge services: Greater than 30 minutes - Quality: VTE Deep Vein Thrombosis/Pulmonary Embolism Present on Admission: No Exam Vital signs: Vital Signs 02/21/18 12:00 02/21/18 16:00 02/21/18 18:03 Temperature 97.6 F 98.1 F 98.6 F Pulse Rate 86 81 88 Respiratory Rate 18 16 18 Blood Pressure 146/67 H 107/68 110/54 L Pulse Oximetry 95 94 L 96 02/21/18 18:23 02/21/18 19:31 02/21/18 20:36 Temperature 98.9 F 98.4 F Pulse Rate 87 84 Respiratory Rate 18 18 Blood Pressure 116/56 L 122/58 L Pulse Oximetry 95 95 96 02/21/18 21:31 02/21/18 22:57 02/21/18 23:07 Temperature 98.3 F 97.7 F Pulse Rate 81 85 Respiratory Rate 18 17 18 Blood Pressure 130/60 132/66 Pulse Oximetry 94 L 96 02/22/18 03:00 02/22/18 03:51 02/22/18 07:50 Temperature 97.9 F Pulse Rate 84 81 82 Respiratory Rate 17 Blood Pressure 151/72 H Pulse Oximetry 96 02/22/18 08:39 02/22/18 09:16 Temperature 97.8 F Pulse Rate 79 Respiratory Rate 18 18 Blood Pressure 184/81 H Pulse Oximetry 97 Intake & Output 02/21/18 02/22/18 02/22/18 18:59 06:59 18:59 Intake Total 600 / 600 760 / 760 Output Total 1570 / 1570 Balance -970 / -970 760 / 760 Weight 88.6 kg Intake: Oral 600 / 600 360 / 360 Intake (Blood Product) Amt 0 / 0 400 / 400 Rbc As-3 Leukoreduced Unit 0 / 0 400 / 400 [id number] Output: Urine 1570 / 1570 Other: # Voids 10 Date of Last Bowel Movement 02/19/18 02/19/18 # Bowel Movements 0 Narrative: GENERAL: laying in bed, NAD SKIN: Warm and dry. CARDIOVASCULAR: Regular rate and rhythm. RESPIRATORY: No accessory muscle use. Clear to auscultation. Breath sounds equal bilaterally. GASTROINTESTINAL: Abdomen soft, non-tender, nondistended. BS+ MUSCULOSKELETAL: Left lower leg in splint. Sensation and motor function intact. Bandage on left upper leg c/d/i NEUROLOGICAL: Awake and alert. Oriented x3. No obvious cranial nerve deficits. Normal speech. PSYCHIATRIC: Appropriate mood and affect; insight and judgment normal. Results Procedures completed during hospitalization: Closed reduction with intramedullary rodding left femur 02/19/18 Closed reduction and splinting left ankle Labs on day of discharge: Labs from last 24 hours 02/22/18 02/22/18 02/21/18 05:45 05:45 17:05 WBC 9.0 RBC 2.86 L Hgb 8.6 L Hct 25.3 L MCV 88.4 MCH 30.2 MCHC 34.2 RDW 13.5 Plt Count 156 MPV 9.2 Sodium 136 Potassium 3.4 L Chloride 99 Carbon Dioxide 27.9 Anion Gap 9 BUN 15 Creatinine 0.76 Estimated GFR 72 L Random Glucose 114 H Calcium 7.4 L* Prot Corrected Calcium 8.1 L Total Protein 5.9 L MTS Gel Crossmatch See Detail 02/21/18 14:40 WBC RBC Hgb 6.9 L* Hct 20.6 L* MCV MCH MCHC RDW Plt Count MPV Sodium Potassium Chloride Carbon Dioxide Anion Gap BUN Creatinine Estimated GFR Random Glucose Calcium Prot Corrected Calcium Total Protein MTS Gel Crossmatch - Impressions ITS Impressions Hip X-Ray 02/19/18 00:00 CONCLUSION: No evidence of recent bony injury. Femur X-Ray 02/19/18 09:42 CONCLUSION: Distal femur fracture. Chest X-Ray 02/19/18 09:43 CONCLUSION: Mild interstitial prominence. Ankle X-Ray 02/19/18 11:33 CONCLUSION: Comminuted tibia and fibular fractures. Tibia/Fibula X-Ray 02/19/18 11:34 CONCLUSION: Distal tibia and fibular fractures are noted. Discharge Plan - Discharge Disposition Patient Disposition: [facility] Inpatient - Discharge Condition Condition: Stable - Discharge Order Discharge Orders: Discharge Order (Routine); Ordered 02/22/18 Ordered By: Camden Espinosa Orthopedic Clear for Discharge (Routine); Ordered 02/22/18 Ordered By: Rebecca Laguna (Ashley) - Discharge Details Anticipated Discharge Date: 02/22/18 - Physicians Team Primary Care Provider: Soy Baer Attending Provider: Dave Mccurdy Other Providers: Vargas Bermudez MD
--- NOTE | 2018-02-22 11:08 | P.PNOP ---
Subjective Interval history: Pt sitting upright in chair, admits pain controlled. Feels ready for d/c to rehab today. Physical Exam Vital signs: Vital Signs 02/21/18 12:00 02/21/18 16:00 02/21/18 18:03 Temperature 97.6 F 98.1 F 98.6 F Pulse Rate 86 81 88 Respiratory Rate 18 16 18 Blood Pressure 146/67 H 107/68 110/54 L Pulse Oximetry 95 94 L 96 02/21/18 18:23 02/21/18 19:31 02/21/18 20:36 Temperature 98.9 F 98.4 F Pulse Rate 87 84 Respiratory Rate 18 18 Blood Pressure 116/56 L 122/58 L Pulse Oximetry 95 95 96 02/21/18 21:31 02/21/18 22:57 02/21/18 23:07 Temperature 98.3 F 97.7 F Pulse Rate 81 85 Respiratory Rate 18 17 18 Blood Pressure 130/60 132/66 Pulse Oximetry 94 L 96 02/22/18 03:00 02/22/18 03:51 02/22/18 07:50 Temperature 97.9 F Pulse Rate 84 81 82 Respiratory Rate 17 Blood Pressure 151/72 H Pulse Oximetry 96 02/22/18 08:39 02/22/18 09:16 Temperature 97.8 F Pulse Rate 79 Respiratory Rate 18 18 Blood Pressure 184/81 H Pulse Oximetry 97 Intake & Output 02/21/18 02/22/18 02/22/18 18:59 06:59 18:59 Intake Total 600 / 600 760 / 760 Output Total 1570 / 1570 Balance -970 / -970 760 / 760 Weight 88.6 kg Intake: Oral 600 / 600 360 / 360 Intake (Blood Product) Amt 0 / 0 400 / 400 Rbc As-3 Leukoreduced Unit 0 / 0 400 / 400 [id number] Output: Urine 1570 / 1570 Other: # Voids 10 Date of Last Bowel Movement 02/19/18 02/19/18 # Bowel Movements 0 Narrative: Dressing dry and intact. Tender to palpation with mild swelling around incision site. Appropriate range of motion expected post operatively. Freely able to move distal digits. No calf pain. Negative Kelsi's sign. Good cap refill. 2+ pedal pulses. Neurovascular intact. - Urinary Catheter Management Indwelling Urethral Catheter Cath placed during this visit: yes, but has since been removed by the nurse Reason for continuing: Decision to DC catheter Insertion date: 02/19/18 Insertion time: 11:49 Removal date: 02/20/18 Removal time: 14:27 Results - Labs CBC & Chem 7: 02/22/18 05:45 02/22/18 05:45 Laboratory Results - last 24 hr 02/21/18 02/21/18 02/22/18 14:40 17:05 05:45 WBC 9.0 RBC 2.86 L Hgb 6.9 L* 8.6 L Hct 20.6 L* 25.3 L MCV 88.4 MCH 30.2 MCHC 34.2 RDW 13.5 Plt Count 156 MPV 9.2 Sodium Potassium Chloride Carbon Dioxide Anion Gap BUN Creatinine Estimated GFR Random Glucose Calcium Prot Corrected Calcium Total Protein MTS Gel Crossmatch See Detail 02/22/18 05:45 WBC RBC Hgb Hct MCV MCH MCHC RDW Plt Count MPV Sodium 136 Potassium 3.4 L Chloride 99 Carbon Dioxide 27.9 Anion Gap 9 BUN 15 Creatinine 0.76 Estimated GFR 72 L Random Glucose 114 H Calcium 7.4 L* Prot Corrected Calcium 8.1 L Total Protein 5.9 L MTS Gel Crossmatch - Procedures Closed reduction with intramedullary rodding left femur 18 Closed reduction and splinting left ankle Assessment and Plan - Assessment and Plan POD #3 Closed reduction with intramedullary rodding left femur POD #3 Closed reduction and splinting left ankle. 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
[2018-02-22 11:56] VITALS: BP 116/59; PULSE 77; TEMP 98.1; O2SAT 96
[2018-02-22 12:11] VITALS: RESP 17
== END 2018-02-22 12:36 ==
LOC: NEPE 09:35 → NEDA 11:09 → N06 17:06
PROVIDERS: ADMIT Family Medicine; ATTEND Family Medicine

== ENCOUNTER 2018-04-12 04:29 | Inpatient (IN) ==
[2018-04-12] MEDS ORDERED: Morphine Inj 4 MG/ML Vial IV.PUSH ONE (05:02)
--- NOTE | 2018-04-12 05:10 | ED ---
HPI General Chief complaint: Extremity Injury, Lower Stated complaint: fall/hip pain Time Seen by Provider: 04/12/18 04:50 Source: patient Limitations: no limitations History of Present Illness HPI narrative: The patient is an 88 year old female who presents to the [facility] emergency department with a history of getting up and going to the kitchen to get a drink of water when she lost her balance. She reports that she landed on her right side and now has right hip pain. She denies hitting her head or losing consciousness. She denies having any neck pain, numbness or tingling to her extremities or weakness of her extremities. She reports that she was unable to get up. Ironically, the patient also reports that 7 weeks ago she injured her left leg. She reports that she had left hip surgery and a left tib-fib repair. She cannot recall the name of the orthopedic physician. She denies being on any blood thinners. She does however report taking a low- dose aspirin daily. She denies having any chest pain, chest pressure, shortness of breath, other extremity pain, or abdominal pain. On review of systems otherwise, the patient denies having any known recent fevers, cough, congestion, vomiting, diarrhea, urinary symptoms, or other neurologic symptoms. Related Data Home Medications Medication Instructions Recorded Confirmed acetaminophen 1,000 mg PO DAILY PRN 04/12/18 04/12/18 alprazolam [Xanax] 0.25 mg PO BID PRN 04/12/18 04/12/18 simvastatin [Zocor] 20 mg PO QPM 04/12/18 04/12/18 Previous Rx's Medication Instructions Recorded calcitonin (salmon) 1 sprays NASAL DAILY #1 bottle 03/09/18 pantoprazole [Protonix] 20 mg PO DAILY #30 tab 03/09/18 temazepam 7.5 mg PO HS PRN #30 cap 03/10/18 Allergies Allergy/AdvReac Type Severity Reaction Status Date / Time erythromycin base Allergy Intermediate Hives Verified 02/22/18 14:06 penicillin G Allergy Intermediate Hives Verified 02/22/18 14:07 Review of Systems ROS: all other systems reviewed are negative [facility] Family History Family History Mother Patient denies significant medical history Father Heart disease Brother Throat cancer Brother Prostate cancer Brother Lung cancer Social History Social History Substance History: No History of Abuse Second Hand Smoke Exposure: Yes Smoking Status: Former smoker Tobacco Type: Cigarettes Packs Per Day: 2 Cigarettes Per Day: 40.0 Years Smoked: 15 Pack-Years: 30.00 Number of Pack-Years (if former smoker): 30 Smoking End Date: 1969 How Often Do You Have a Drink Containing Alcohol: Never Hx Recent Travel: No Recent Travel in [facility] within the Last 8 Weeks: No Recent Out of Country Travel within the Last 8 Weeks: No Immunization History Tetanus Immunization: Unsure Exam Const General: cooperative, no acute distress and well developed Nutritional Appearance: well nourished Orientation: alert, awake and oriented x3 HENMT Head: normocephalic and atraumatic Nose: no nasal discharge and no epistaxis Mouth: moist mucous membranes Throat: posterior oropharynx normal and uvula midline Eyes Sclera: normal sclerae Pupils: PERRL Neck Neck: no meningeal signs, trachea midline and no JVD Chest Chest: no tenderness Resp Effort & Inspection: no use of accessory muscles Auscultation: clear to auscultation bilaterally Cardio Rate: regular rate Rhythm: regular rhythm Heart Sounds: murmur (2/6 systolic murmur. No gallops or rubs. The patient reports that she has a history of heart murmur.) GI Inspection: non-distended Palpation: soft, no hepatosplenomegaly and nontender Auscultation: normal bowel sounds Back/Spine/Pelvis Back: no CVA tenderness Thoracic/Lumbar Spine: No thoracic spinal tenderness and No lumbar spinal tenderness Skin General: dry skin (warm) Neuro General: alert, awake and oriented x3 Cranial Nerves: CN's II-XI intact bilaterally Speech: speech normal Motor: strength 5/5 throughout and no movement abnormalities noted Sensory Exam: no sensory deficits noted Extrem General: normal to inspection (Except in the area of interest, the right lower extremity. 2+ pulses in all 4 extremities.), no clubbing, no cyanosis and edema (Bilateral lower extremity edema, 1+ on the right, slightly increased on the left related to her prior recent surgery. No signs of infection.) Laterality: bilaterally Right upper extremity: normal to inspection and full ROM Left upper extremity: normal to inspection and full ROM Right lower extremity: hip/thigh (The patient with any attempts at flexion of the right hip has tenderness in the right groin. The patient has slight external rotation and shortening of the right lower extremity noted. The patient has intact sensation over all digits. The patient has less than 3- second capillary refill. The patient is able to move her foot and ankle, as well as her knee without pain.) Left lower extremity: normal to inspection and full ROM Psych Mood: congruent mood Affect: normal affect Judgment: judgment good Course Consultations Consultation #1: The patient's case including history, pertinent physical examination findings, and laboratory studies were discussed with Dr. Jaeger, who is covering for Dr. Bermudez, the patient's orthopedic physician. He explained that they will see the patient in consultation. He requested that the patient be made n.p.o. Time: 06:08 Consultation #2: The patient's case including history, pertinent physical examination findings, and laboratory studies were discussed with Dr. Horne. It was agreed that the patient would be admitted to the hospitalist service. Initial Documented Vital Signs Temperature 97.9 F 04/12/18 04:44 Pulse Rate 84 04/12/18 04:44 Respiratory Rate 18 04/12/18 04:44 Blood Pressure 228/102 H 04/12/18 04:44 Pulse Oximetry 94 L 04/12/18 04:44 Last Documented Vital Signs Temperature 96.5 F L 04/12/18 15:42 Pulse Rate 76 04/12/18 16:45 Respiratory Rate 14 04/12/18 16:45 Blood Pressure 125/60 04/12/18 16:45 Pulse Oximetry 97 04/12/18 16:45 Medical Decision Making [facility] Narrative Medical decision making narrative: During the course of the patient's emergency department visit, the patient's history, examination, and differential diagnosis were reviewed with the patient. The patient was placed on a gambling monitor with oximetry and frequent blood pressure monitoring. The patient had IV access obtained and blood work sent for analysis. Diagnostic evaluation was started regarding the patient's fall with right hip pain. The patient was initially provided morphine 2 mg IV, Zofran 4 mg IV, normal saline at 70 mL/h. The patient's diagnostic studies are remarkable for normal white count at 8.9, normal hemoglobin of 12.2, platelets 236 with 76.7 neutrophils, coagulation studies are unremarkable, chemistry is remarkable for sodium of 132, chloride 97 , GFR of 72, glucose 114, AST 14, alk phos 239, cardiac enzymes within normal limits. CHEST X-RAY: No infiltrate, pneumothorax or mediastinal widening. Revealed atelectasis at the lateral left lung base, x-ray of the right hip revealed a right intertrochanteric femoral neck fracture. I did speak to Dr. Jaeger, the covering orthopedic physician for Dr. Bermudez, the patient's orthopedic physician regarding this patient's case. He requested that the patient be made n.p.o. He plans to take the patient to the OR as soon as possible. The patient's results were discussed with the patient, including the plan of care. I explained that further testing and/ or monitoring is indicated based on the patient's history, examination, and/ or laboratory findings. Therefore, I recommended admission for additional evaluation. The patient expressed understanding and was agreeable with this plan. The patient was admitted to the hospital in stable condition and sent to a bed under the care of [facility] services. Medical Screen Exam Complete: Yes Emergency Medical Condition: Yes Differential Diagnosis Differential Diagnosis: Right hip fracture, versus right hip dislocation, versus femur fracture, versus contusion, versus pelvis fracture Medical Records Medical records reviewed: Yes I reviewed the patient's medical records. Lab Data Lab results reviewed: Yes I reviewed the patient's lab results. Result diagrams: 04/12/18 05:15 04/12/18 05:15 Lab Results 04/12/18 04/12/18 04/12/18 Range/Units 05:15 05:15 05:15 WBC 8.9 (4.0-11.0) th/mm3 RBC 3.99 L (4.00-5.30) mil/mm3 Hgb 12.2 (11.6-15.3) gm/dL Hct 36.4 (35.0-46.0) % MCV 91.1 (80.0-100.0) fL MCH 30.6 (27.0-34.0) pg MCHC 33.6 (32.0-36.0) % RDW 14.7 (11.6-17.2) % Plt Count 236 (150-450) th/mm3 MPV 8.6 (7.0-11.0) fL Neut % (Auto) 76.7 H (16.0-70.0) % Lymph % (Auto) 12.9 (9.0-44.0) % [place] % (Auto) 7.1 (0.0-8.0) % Eos % (Auto) 2.6 (0.0-4.0) % Baso % (Auto) 0.7 (0.0-2.0) % Neut # (Auto) 6.8 (1.8-7.7) th/mm3 Lymph # (Auto) 1.1 (1.0-4.8) th/mm3 [place] # (Auto) 0.6 (0.0-0.9) th/mm3 Eos # (Auto) 0.2 (0.0-0.4) th/mm3 Baso # (Auto) 0.1 (0.0-0.2) th/mm3 WBC Differential . Differential Comment Auto diff final PT 10.7 (9.8-11.6) sec INR 1.1 Ratio APTT 24.0 L (24.3-30.1) sec Sodium 132 L (136-145) meq/L Potassium 4.4 (3.5-5.1) meq/L Chloride 97 L (98-107) meq/L Carbon Dioxide 29.2 (21.0-32.0) meq/L Anion Gap 6 (5-15) meq/L BUN 12 (7-18) mg/dL Creatinine 0.76 (0.50-1.00) mg/dL Estimated GFR 72 L (>89) mL/min Random Glucose 114 H (74-106) mg/dL Calcium 8.6 (8.5-10.1) mg/dL Total Bilirubin 0.4 (0.2-1.0) mg/dL AST 14 L (15-37) U/L ALT 19 (10-53) U/L Alkaline Phosphatase 239 H (45-117) U/L Total Creatine Kinase 36 (26-192) U/L Troponin I Less than 0.02 L (0.02-0.05) ng/mL Total Protein 7.0 (6.4-8.2) g/dL Albumin 3.7 (3.4-5.0) g/dL Imaging Data Radiologist's impression: Hip X-Ray 04/12/18 00:00 CONCLUSION: Good position and alignment on the postoperative study. Chest X-Ray 04/12/18 05:00 CONCLUSION: Suspected mild atelectasis or consolidation at the lateral left base. Hip X-Ray 04/12/18 05:00 CONCLUSION: Acute right intertrochanteric femoral neck fracture. ECG Data Attestation: I personally reviewed and interpreted this ECG as follows: Interpretation: The patient had an EKG done on arrival. The patient's EKG reveals a sinus rhythm heart rate of 81, QRS duration 70 ms, QTC [address] segment elevation. T waves are inverted in V1. Discharge Plan Discharge Disposition Patient Disposition: 30 Still Patient Discharge Details Diagnosis: Closed intertrochanteric fracture Physicians Team ED Provider: Monique Do Primary Care Provider: UNKNOWN, Attending Provider: Juni Morocho Other Providers: Ho Jaeger Discharge Interventions Interventions: ED Discharge Assessment Last Done: 04/12/18 11:49 Vital Signs Last Done: 04/12/18 11:50 Status ED Status: Left Department Discharge Information Discharge Date/Time: 04/12/18 12:20
[2018-04-12 05:30] LABS: Baso # (Auto) 0.1 th/mm3 (0.0-0.2); Baso % (Auto) 0.7 % (0.0-2.0); Eos # (Auto) 0.2 th/mm3 (0.0-0.4); Eos % (Auto) 2.6 % (0.0-4.0); Hematocrit 36.4 % (35.0-46.0); Hemoglobin 12.2 gm/dL (11.6-15.3); Lymph # (Auto) 1.1 th/mm3 (1.0-4.8); Lymph % (Auto) 12.9 % (9.0-44.0); Mean Corpuscular HGB Conc 33.6 % (32.0-36.0); Mean Corpuscular Hemoglobin 30.6 pg (27.0-34.0); Mean Corpuscular Volume 91.1 fL (80.0-100.0); Mean Platelet Volume 8.6 fL (7.0-11.0); Mono # (Auto) 0.6 th/mm3 (0.0-0.9); Mono % (Auto) 7.1 % (0.0-8.0); Neut # (Auto) 6.8 th/mm3 (1.8-7.7); Neut % (Auto) 76.7 % (16.0-70.0); Platelet Count 236 th/mm3 (150-450); Red Blood Count 3.99 mil/mm3 (4.00-5.30); Red Cell Distribution Width 14.7 % (11.6-17.2); White Blood Count 8.9 th/mm3 (4.0-11.0)
[2018-04-12] MEDS: Sod Chloride 0.9% Inj 1,000 ML IV.CONT SCH (05:35)
--- NOTE | 2018-04-12 05:49 | XR ---
EXAM DATE: 04/12/2018 5:00 AM EDT AGE/SEX: 88 years / Female INDICATIONS: Pain in right hip. CLINICAL DATA: This is the patient's initial encounter. Patient reports that signs and symptoms have been present for 1 day and indicates a pain score of 10/10. MEDICAL/SURGICAL HISTORY: None. None. COMPARISON: No prior exams available for comparison. FINDINGS: There is an intertrochanteric femoral neck fracture on the right. Hip joint itself is aligned. No oth er fractures seen. Patient has surgical hardware in the proximal left femur from prior fracture. The patient has degenerative change in the lumbar spine. The patient appears to be status post vertebropl asty at L3. CONCLUSION: Acute right intertrochanteric femoral neck fracture. Electronically signed by: Noah Nielsen MD 04/12/2018 5:47 AM EDT
[2018-04-12 05:52] LABS: INR 1.1 Ratio; Prothrombin Time 10.7 sec (9.8-11.6)
[2018-04-12 05:58] LABS: Alanine Aminotransferase 19 U/L (10-53); Albumin 3.7 g/dL (3.4-5.0); Anion Gap 6 meq/L (5-15); Aspartate Aminotransferase 14 U/L (15-37); Blood Urea Nitrogen 12 mg/dL (7-18); Calcium 8.6 mg/dL (8.5-10.1); Carbon Dioxide 29.2 meq/L (21.0-32.0); Chloride 97 meq/L (98-107); Glomerular Filtration Rate 72 mL/min (>89); Glucose,Random 114 mg/dL (74-106); Potassium 4.4 meq/L (3.5-5.1); Sodium 132 meq/L (136-145)
[2018-04-12 06:02] LABS: Alkaline Phosphatase 239 U/L (45-117)
[2018-04-12 06:14] LABS: Creatine Kinase 36 U/L (26-192)
--- NOTE | 2018-04-12 06:18 | XR ---
EXAM DATE: 04/12/2018 5:00 AM EDT AGE/SEX: 88 years / Female INDICATIONS: Cough. CLINICAL DATA: This is the patient's initial encounter. Patient reports that signs and symptoms have been present for 1 day and indicates a pain score of 0/10. MEDICAL/SURGICAL HISTORY: None. None. COMPARISON: [facility], CHEST 1V SINGLE AP, 03/01/2018. . FINDINGS: The heart size is normal. There is minimal increased density at the lateral left base. The right lung is clear. No effusion is seen. There is chronic degenerative change at the left glenohumeral joint. The patient is status post vertebroplasty at a lower thoracic to body. CONCLUSION: Suspected mild atelectasis or consolidation at the lateral left base. Electronically signed by: Noah Nielsen MD 04/12/2018 6:17 AM EDT
[2018-04-12] MEDS: Morphine Sulfate Inj 2 MG/ML Vial IV.PUSH PRN (08:22)
--- NOTE | 2018-04-12 09:00 | P.HP ---
History of Present Illness Primary Care Physician: UNKNOWN Chief Complaint: Lower extremity injury History of Present Illness: This is a pleasant 88 y/o Female who came to Emergency room today status post fall, as per patient she was getting up and going to the kitchen to get a drink of water when she lost her balance. She reports that she landed on her right side and now has right hip pain. She denies hitting her head or losing consciousness. She denies having any neck pain, numbness or tingling to her extremities or weakness of her extremities. She reports that she was unable to get up. Ironically, the patient also reports that 7 weeks ago she injured her left leg. She reports that she had left hip surgery and a left tib-fib repair, takes aspirin, She denies having any chest pain, chest pressure, shortness of breath, other extremity pain, or abdominal pain. She is been seen in Emergency Room discussed with patient and with her Daughter Mrs. Leslie Magaña, She confirm the patient has osteoporosis using nasal calcitonin, Hyperlipidemia takes simvastatin, Lymphedema managed with diuretics but were removed one week ago by nurse, GERD on PPIs, status post total left knee replacement. 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 Recent Left Hip arthroplasty status post trauma seven weeks ago, she was at [facility] inpatient rehab for 3 weeks, then was on [facility] in house for 3 weeks more, had also Tibia/Fibula fracture Inpatient Certification: I certify that the inpatient services were ordered in accordance with Medicare regulations governing the order. This includes certification that hospital inpatient services are reasonable and necessary and in the case of services not specified as inpatient-only under 42 CFR 419.22(n), that they are appropriately provided as inpatient services in accordance to with the 2-midnight benchmark under 43 CFR 412.3(e) Estimated Total Length of Stay (Days): 2 Plans for Post Hospital Care: Other Review of Systems All other systems reviewed negative except as stated in HPI PMFSH - History History Provided By: Patient - Medical History Medical History: Medical History (Last Reviewed 04/12/18 @ 05:05 by Monique Do MD) Cataract Edema GERD (gastroesophageal reflux disease) Hemorrhage following tonsillectomy and adenoidectomy History of hysterectomy Hypercholesterolemia Insomnia Lymphedema Osteopenia Osteoporosis Schatzki's ring - Surgical History Surgical History: Surgical History (Last Updated 04/12/18 @ 05:05 by Monique Do MD) History of cholecystectomy History of hip surgery History of kyphoplasty History of left knee replacement History of tubal ligation Hx of appendectomy Hx of tonsillectomy - Family History Family History: Family History (Last Reviewed 04/12/18 @ 05:05 by Monique Do MD) Mother Patient denies significant medical history Father Heart disease Brother Throat cancer Brother Prostate cancer Brother Lung cancer - Tobacco History Second Hand Smoke Exposure: No Smoking Status: Former smoker Tobacco Type: Cigarettes Packs Per Day: 2 Years Smoked: 15 Number of Pack Years (if former smoker): 30 Smoking End Date: 1969 - Alcohol History How Often Do You Have a Drink Containing Alcohol: Never - Substance Use History Substance History: No History of Abuse - Travel History History of Recent Travel: No Recent Travel in the [place] Within the Last 8 Weeks: No Recent Travel Out of the Country Within the Last 8 Weeks: No - Immunization History Tetanus Immunization: Unsure Medications and Allergies Active Medications: Active Medications Acetaminophen (Tylenol) 650 mg PO Q4H PRN PRN Reason: Temp > 100.4 Sodium Chloride (Ns Inj) 1,000 mls @ 70 mls/hr IV.CONT .[id number] INDERJIT Last Admin: 04/12/18 05:35 Dose: 70 mls/hr Morphine Sulfate (Morphine Inj) 2 mg IV.PUSH Q3H PRN PRN Reason: pain 1 to 10 Last Admin: 04/12/18 08:22 Dose: 2 mg Ondansetron HCl (Zofran Inj) 4 mg IV.PUSH Q6H PRN PRN Reason: NAUSEA OR VOMITING Allergies Allergy/AdvReac Type Severity Reaction Status Date / Time erythromycin base Allergy Intermediate Hives Verified 02/22/18 14:06 penicillin G Allergy Intermediate Hives Verified 02/22/18 14:07 Home Medications Medication Instructions Recorded Confirmed Type acetaminophen 1,000 mg PO DAILY PRN 04/12/18 04/12/18 History alprazolam [Xanax] 0.25 mg PO BID PRN 04/12/18 04/12/18 History simvastatin [Zocor] 20 mg PO QPM 04/12/18 04/12/18 History Exam Vital signs: Vital Signs 04/12/18 04:44 04/12/18 07:00 04/12/18 08:06 Temperature 97.9 F 97.6 F Pulse Rate 84 87 84 Respiratory Rate 18 15 18 Blood Pressure 228/102 H 205/91 H 179/87 H Pulse Oximetry 94 L 98 98 Intake & Output 04/11/18 04/12/18 04/12/18 18:59 06:59 18:59 Weight 87.543 kg Narrative: GENERAL: Obese patient, well-developed patient, in no apparent distress. CARDIOVASCULAR: Regular rate and rhythm without murmurs, gallops, or rubs. RESPIRATORY: Decreased breath sounds bilateral, inspiratory crackles on both bases increased on the left base. no Expiratory wheezing at this time. GASTROINTESTINAL: Abdomen soft, non-tender, nondistended. Normal active bowel sounds MUSCULOSKELETAL: Extremities without clubbing, cyanosis, Edema 3+ on Left leg erythema and trophic changes on left ankle and external rotation on the Right leg. good pulses. NEURO: Alert & Oriented x4 to person, place, time, situation. Moves all ext x4 Results - Labs CBC & Chem 7: 04/12/18 05:15 04/12/18 05:15 Labs: Laboratory Results - last 24 hr 04/12/18 04/12/18 04/12/18 05:15 05:15 05:15 WBC 8.9 RBC 3.99 L Hgb 12.2 Hct 36.4 MCV 91.1 MCH 30.6 MCHC 33.6 RDW 14.7 Plt Count 236 MPV 8.6 Neut % (Auto) 76.7 H Lymph % (Auto) 12.9 [place] % (Auto) 7.1 Eos % (Auto) 2.6 Baso % (Auto) 0.7 Neut # (Auto) 6.8 Lymph # (Auto) 1.1 [place] # (Auto) 0.6 Eos # (Auto) 0.2 Baso # (Auto) 0.1 WBC Differential . Differential Comment Auto diff final PT 10.7 INR 1.1 APTT 24.0 L Sodium 132 L Potassium 4.4 Chloride 97 L Carbon Dioxide 29.2 Anion Gap 6 BUN 12 Creatinine 0.76 Estimated GFR 72 L Random Glucose 114 H Calcium 8.6 Total Bilirubin 0.4 AST 14 L ALT 19 Alkaline Phosphatase 239 H Total Creatine Kinase 36 Troponin I Less than 0.02 L Total Protein 7.0 Albumin 3.7 - Imaging Impressions Chest X-Ray 04/12/18 05:00 CONCLUSION: Suspected mild atelectasis or consolidation at the lateral left base. Hip X-Ray 04/12/18 05:00 CONCLUSION: Acute right intertrochanteric femoral neck fracture. Caprini VTE Risk Assessment Caprini VTE Risk Assessment: Moderate/High Risk (score >= 2) Caprini Risk Assessment Model: Point Value = 1 Point Value = 2 Point Value = 3 Point Value = 5 Age 41-60 Minor surgery BMI > 25 kg/m2 Swollen legs Varicose veins or History of unexplained or recurrent spontaneous Oral contraceptives or hormone replacement Sepsis (< 1 month) Serious lung disease, including pneumonia (< 1 month) Abnormal pulmonary function Acute myocardial infarction Congestive heart failure (< 1 month) History of inflammatory bowel disease Medical patient at bed rest Age 61-74 Arthroscopic surgery Major open surgery (> 45 min) Laparoscopic surgery (> 45 min) Malignancy Confined to bed (> 72 hours) Immobilizing plaster cast Central venous access Age >= 75 History of VTE Family history of VTE Factor V Leiden Prothrombin [id number] Lupus anticoagulant Anticardiolipin antibodies Elevated serum homocysteine Heparin-induced thrombocytopenia Other congenital or acquired thrombophilia Stroke (< 1 month) Elective arthroplasty Hip, pelvis, or leg fracture Acute spinal cord injury (< 1 month) Prophylaxis Regimen: Total Risk Factor Score Risk Level Prophylaxis Regimen 0-1 Low Early ambulation 2 Moderate Order ONE of the following: *Sequential Compression Device (SCD) *Heparin 5000 units SQ BID 3-4 Higher Order ONE of the following medications: *Heparin 5000 units SQ TID *Enoxaparin/Lovenox 40 mg SQ daily (WT < 150 kg, CrCl > 30 mL/min) *Enoxaparin/Lovenox 30 mg SQ daily (WT < 150 kg, CrCl > 10-29 mL/min) *Enoxaparin/Lovenox 30 mg SQ BID (WT < 150 kg, CrCl > 30 mL/min) AND/OR *Sequential Compression Device (SCD) 5 or more Highest Order ONE of the following medications: *Heparin 5000 units SQ TID (Preferred with Epidurals) *Enoxaparin/Lovenox 40 mg SQ daily (WT < 150 kg, CrCl > 30 mL/min) *Enoxaparin/Lovenox 30 mg SQ daily (WT < 150 kg, CrCl > 10-29 mL/min) *Enoxaparin/Lovenox 30 mg SQ BID (WT < 150 kg, CrCl > 30 mL/min) AND *Sequential Compression Device (SCD) Assessment and Plan - Plan 1. Acute right intertrochanteric Femoral Neck fracture, discussed by ER physician with Doctor Bermudez covering for her Primary Orthopedic Surgeon Doctor Jaeger, patient left NPO and will go for procedure later today. Hemoglobin on admission 12.2 Mild Hyponatremia in 132. No cardiac history. PT consult, pain management, outpatient case manager for discharge will need rehab. 2. Hypertensive Urgency probably secondary to Stress and Pain, continue Cardiac monitoring, will continue Hydralazine as needed Patient is NPO at this time. 3. Hyperlipidemia to continue Simvastatin 4. Anxiety disorder to continue home medicines. 5. Obesity strongly recommended diet and exercise as outpatient. 6. GERD on PPIs. 7. Abnormal CXR no signs of infection, looks more chronic Pulmonary process, Pulmonary fibrosis more likely versus Early COPD. will give Bronchodilator, Mucolytic and incentive spirometry. early ambulation to avoid Pulmonary complications. she was smoker for more than 20 years but stopped smoking in 1969. 8. osteoporosis to continue Calcitonin DVT prophylaxis with SCDs to start Chemical prophylaxis as per Orthopedic surgery. Code Status: Full code. Discussed Condition With: Patient and her Daughter Mrs. Leslie Magaña. Discharge Planning: Once cleared by Orthopedic surgery.
--- NOTE | 2018-04-12 09:49 | ECG ---
Date Performed: 04/12/2018 Time Performed: 05:17:12 PTAGE: 88 years EKG: Sinus rhythm WITH FIRST DEGREE AV BLOCK ABNORMAL ECG No significant change from prior electrocardiogram. PREVIOUS TRACING : 02/19/2018 09.58 DOCTOR: Humberto Gregory Interpretating Date/Time 04/12/2018 09:48:20
[2018-04-12] MEDS ORDERED: hydrALAZINE HCl Inj 20 MG/ML Vial IV.PUSH PRN (10:01)
[2018-04-12] MEDS: Famotidine PF Inj 20 MG/2 ML Vial IV.PUSH SCH ×2 (10:53→23:56)
[2018-04-12] MEDS ORDERED: Influenza (Quadrivalent) Vaccine 0.5 ML Syringe IM ONE (11:30)
[2018-04-12] MEDS ORDERED: fentaNYL Citrate Inj 100 MCG/2 ML Ampul ONE (14:17)
[2018-04-12] MEDS ORDERED: Famotidine PF Inj 20 MG/2 ML Vial ONE (14:17)
[2018-04-12] MEDS ORDERED: Phenylephrine/NS 1000 MCG/10ML Syringe IV.PUSH ONE (14:26)
[2018-04-12] MEDS ORDERED: Lidocaine PF 1% Inj 5 ML Syringe OTHER ONE (14:26)
[2018-04-12] MEDS ORDERED: Clindamycin Inj 900 MG/6 ML Vial ONE (14:30)
--- NOTE | 2018-04-12 15:30 | XR ---
EXAM DATE: 04/12/2018 12:00 AM EDT AGE/SEX: 88 years / Female INDICATIONS: Right hip trochnail. CLINICAL DATA: This is the patient's subsequent encounter. Patient reports that signs and symptoms h ave been present for 1 day and indicates a pain score of Nonresponsive. MEDICAL/SURGICAL HISTORY: Non-responsive. Non-responsive. COMPARISON: No prior exams available for comparison. FINDINGS: Status post internal fixation of the proximal right femur. There is good position and alignment of th e bony structures. The hardware is grossly intact. There is good alignment at the hip joint. CONCLUSION: Good position and alignment on the postoperative study. Electronically signed by: Travis Vidal MD 04/12/2018 3:29 PM EDT
--- NOTE | 2018-04-12 15:35 | MB ---
cc: Ho Jaeger MD DATE: 04/12/2018 REASON FOR CONSULTATION: Right intertrochanteric hip fracture. HISTORY OF PRESENT ILLNESS: The patient is an 88-year-old female who presents to [facility] Emergency Room after a mechanical fall. She was getting up going in the kitchen when she fell after losing her balance. She landed on the right side. She developed the immediate onset of severe pain in the right hip with a constant, throbbing, aching sensation. No loss of consciousness. She did not hit her head. She was unable to stand, walk, ambulate or bear weight or move that hip after the fall. She was taken to [facility] emergently. X-rays confirmed evidence of a new acute right displaced intertrochanteric hip fracture. Of note, she has a history of prior left ankle fracture and left hip fracture, which are unrelated to this new injury. The patient's daughter, Leslie Magaña, has been called and I have discussed in detail the diagnosis with her as well as treatment options. PAST MEDICAL HISTORY: Includes dementia, cataracts, gastric reflux, hysterectomy, high cholesterol, insomnia, lymphedema, osteoporosis. PAST SURGICAL HISTORY: Left hip surgery, kyphoplasty, left knee replacement, tubal ligation, appendectomy, tonsillectomy. FAMILY HISTORY: Reviewed and noncontributory. SOCIAL HISTORY: She is a former smoker, [id number] history. She does not currently smoke or drink. MEDICATIONS: 1. Tylenol. 2. Zofran. 3. Xanax. 4. Zocor. ALLERGIES: ERYTHROMYCIN, PENICILLIN G. REVIEW OF SYSTEMS: Negative for 10 systems other than HPI. PHYSICAL EXAMINATION: VITAL SIGNS: Temperature 97.6, pulse is 87, respirations 15, blood pressure 205/91. GENERAL: The patient is obese, awake, alert, lying in bed, in no acute distress. She has altered affect and has some dementia. She is alert and oriented to person and place. HEENT: Normocephalic, atraumatic. Pupils round. Extraocular muscles intact. NECK: Supple. LUNGS: Clear. HEART: Regular rate and rhythm. ABDOMEN: Soft, nontender. EXTREMITIES: The patient has pain with any passive motion of the right hip. Skin is intact over the right hip. LABORATORY DATA: White blood cell count is 8.9, hemoglobin is 12, hematocrit 36, platelets 236. Glucose 114. X-ray of the right hip revealed comminuted displaced right intertrochanteric hip fracture. IMPRESSION: An 88-year-old female, status post fall, right displaced intertrochanteric hip fracture. PLAN: I discussed the diagnosis with the patient and also with the patient's daughter, who has power of director process. We spoke about treatment options including the option of nonoperative treatment versus surgery. Surgery will consist of open reduction and internal fixation with intramedullary nailing. Risks of surgery were discussed, which include but are not limited to bleeding, infection, damage to nerves and blood vessels, pain, stiffness, failure of hardware, nonunion, blood clots, pulmonary embolism, and even . The patient and daughter both wished to proceed with surgery as outlined above. Appropriate consent has been obtained and we will proceed with scheduling surgery accordingly. Ho Jaeger MD JWZbigniew/mary ann , 03:17 PM , 03:26 PM
[2018-04-12] MEDS ORDERED: *Meperidine Inj 25 MG/ML Vial PERIprocedural Use ONLY ONE (16:20)
[2018-04-12] MEDS ORDERED: *Enalaprilat Inj 1.25 MG/ML Vial IV.PUSH ONE (16:20)
[2018-04-12] MEDS ORDERED: *Labetalol HCl Inj 100 MG/20 ML Vial PERIprocedural Use ONLY IV.PUSH ONE (16:29)
--- NOTE | 2018-04-12 17:36 | MP ---
cc: Ho Jaeger MD DATE OF OPERATION: 04/12/2018 PREOPERATIVE DIAGNOSIS: Right intertrochanteric hip fracture. POSTOPERATIVE DIAGNOSIS: Right intertrochanteric hip fracture. PROCEDURE: Open reduction and internal fixation with intramedullary nailing, right intertrochanteric hip fracture. SURGEON: Ho Jaeger MD. CALENDER WIND UP HELPER: Helder Mccallum PA-C. ANESTHESIA: General. ESTIMATED BLOOD LOSS: 200 mL. COMPLICATIONS: None. IMPLANTS: Synthes. JUSTIFICATION: The patient is an 88-year-old female who fell sustaining a displaced right intertrochanteric hip fracture. She presented to [facility] Emergency Room. X-rays confirmed the above-named findings. The patient, as well as the patient's daughter, power of finance attorney, counseled as to the risks, benefits, and alternatives to the above-named proposed surgical procedure. The patient and daughter did wish to proceed with surgery. PROCEDURE IN DETAIL: Written consent was obtained. The patient was identified by name, taken to the operating room, and placed supine on the operating table. General anesthesia was administered, as well as 900 mg of IV clindamycin. She does have a PENICILLIN ALLERGY. The right foot was placed in a padded traction boot. The left leg placed in a padded well leg maria. All bony prominences and pressure points were well padded. Longitudinal traction was applied to the right lower extremity to assist with preliminary reduction. The right hip and right lower extremity were prepped and draped using isopropyl alcohol, Hibiclens solution, and DuraPrep solution after a timeout was performed. A longitudinal incision was made over the lateral aspect of the right hip. The fascial layer was incised and the guidewire was used to gain entrance into the intramedullary canal of the femur. This was followed by cannulated entry reamer. Subsequently, placement of a Synthes 11 mm titanium trochanteric femoral nail with a 130 degree locking jig was used to center a guidepin in the femoral head on the AP and lateral fluoroscopic projections. This was followed by placement of a 100 mm spiral blade. The top locking screw was secured to create a fixed angle sliding construct. Distally, the locking jig was used to place a single lateral to medial transverse static locking screw. Fluoroscopic imaging confirmed our placement and fracture reduction. Surgical wound was thoroughly irrigated with sterile saline solution. The fascial layer was closed with #1 Vicryl suture, subcutaneous layer with 2-0 Vicryl suture. Skin was closed with Dermabond. Sterile dressing applied. The patient tolerated the procedure well with no intraoperative complications noted. Helder Mccallum, physician assistant director of residence life certified, was present during the entire procedure to include patient positioning and the procedure itself. The medical necessity of a physician assistant director of residence life was indicated in this case due to the complexity of the procedure. He assisted with appropriate manipulation of the leg and also exposure and retraction. He assisted with both achieving and maintaining fracture reduction along with implantation of the internal fixation device. Ho Jaeger MD JWM/rd/ll , 03:21 PM , 03:29 PM
[2018-04-12] MEDS ORDERED: *morphine SULFATE 4 MG/ML PERIprocedure ONLY ONE (18:03)
[2018-04-12] MEDS ORDERED: Sodium Chloride 0.9% 2 ML Flush PRN IV.FLUSH (18:34)
[2018-04-12] MEDS: Clindamycin 600 mg/NS Premix 600 MG/50 ML PIGGYBACK IV.SIG SCH (23:55)
[2018-04-12] MEDS: guaiFENesin 600 MG ER Tablet PO SCH (23:57)
[2018-04-13] MEDS: Morphine Sulfate Inj 2 MG/ML Vial IV.PUSH PRN ×2 (02:00→06:54)
[2018-04-13] MEDS: ALPRAZolam 0.25 MG Tablet PO PRN ×2 (02:00→20:38)
[2018-04-13] MEDS: Clindamycin 600 mg/NS Premix 600 MG/50 ML PIGGYBACK IV.SIG SCH (06:54)
[2018-04-13 07:06] LABS: Baso % (Auto) 0.2 % (0.0-2.0); Hemoglobin 9.8 gm/dL (11.6-15.3); Lymph # (Auto) 0.8 th/mm3 (1.0-4.8); Lymph % (Auto) 6.9 % (9.0-44.0); Mean Corpuscular HGB Conc 33.8 % (32.0-36.0); Mean Corpuscular Hemoglobin 30.3 pg (27.0-34.0); Mean Corpuscular Volume 89.7 fL (80.0-100.0); Mean Platelet Volume 9.4 fL (7.0-11.0); Mono # (Auto) 0.9 th/mm3 (0.0-0.9); Mono % (Auto) 7.7 % (0.0-8.0); Neut % (Auto) 85.2 % (16.0-70.0); Platelet Count 207 th/mm3 (150-450); Red Blood Count 3.23 mil/mm3 (4.00-5.30); Red Cell Distribution Width 14.4 % (11.6-17.2); White Blood Count 11.7 th/mm3 (4.0-11.0)
[2018-04-13 07:42] LABS: Calcium 7.7 mg/dL (8.5-10.1); Carbon Dioxide 27.7 meq/L (21.0-32.0); Potassium 3.9 meq/L (3.5-5.1)
--- NOTE | 2018-04-13 08:00 | P.PNOP ---
Subjective Interval history: pain seems tolerable Physical Exam Vital signs: Vital Signs 04/12/18 08:06 04/12/18 08:46 04/12/18 09:47 Temperature Pulse Rate 84 90 Respiratory Rate 18 Blood Pressure 179/87 H 175/77 H Pulse Oximetry 98 97 04/12/18 10:45 04/12/18 11:50 04/12/18 12:00 Temperature 97.6 F Pulse Rate 94 H 88 95 H Respiratory Rate 18 18 19 Blood Pressure 145/68 H 178/78 H Pulse Oximetry 98 91 L 04/12/18 15:42 04/12/18 15:45 04/12/18 16:00 Temperature 96.5 F L Pulse Rate 92 H 92 H 99 H Respiratory Rate 25 H 16 15 Blood Pressure 177/85 H 169/79 H 177/82 H Pulse Oximetry 95 95 96 04/12/18 16:15 04/12/18 16:30 04/12/18 16:45 Temperature Pulse Rate 101 H 93 H 76 Respiratory Rate 22 13 14 Blood Pressure 189/93 H 188/84 H 125/60 Pulse Oximetry 95 96 97 04/12/18 17:01 04/12/18 17:30 04/12/18 18:00 Temperature 99 F Pulse Rate 79 85 80 Respiratory Rate 20 17 19 Blood Pressure 126/60 131/60 144/67 H Pulse Oximetry 99 98 97 04/12/18 18:30 04/12/18 18:42 04/12/18 20:00 Temperature 97.7 F Pulse Rate 83 88 Respiratory Rate 14 18 Blood Pressure 135/60 152/68 H Pulse Oximetry 99 95 93 L 04/13/18 00:00 04/13/18 04:00 Temperature 97.6 F 97.9 F Pulse Rate 94 H 92 H Respiratory Rate 18 18 Blood Pressure 162/75 H 143/91 H Pulse Oximetry 93 L 93 L Intake & Output 04/12/18 04/13/18 04/13/18 18:59 06:59 18:59 Intake Total 700 / 700 100 / 100 Output Total 1800 / 1800 Balance -1100 / -1100 100 / 100 Weight 90.9 kg Intake: IV 100 / 100 Cleocin 600 mg/NS Premix 600 mg 100 / 100 In 50 ml @ 100 mls/hr IV.SIG Q8H [facility] Rx#:[id number] Anesthesia Amount 700 / 700 Output: Estimated Blood Loss 100 / 100 Urine Amount (Catheter) 1700 / 1700 Indwelling Urethral Catheter 1700 / 1700 Other: Date of Last Bowel Movement 04/11/18 Narrative: in bed, resting, nad dressing with mild bloody drainage neg richard nvi - Urinary Catheter Management Indwelling Urethral Catheter Cath placed during this visit: yes Reason for continuing: Hourly intake/output Insertion date: 04/12/18 Insertion time: 06:45 Results - Labs CBC & Chem 7: 04/13/18 05:05 04/13/18 05:05 Laboratory Results - last 24 hr 04/13/18 04/13/18 05:05 05:05 WBC 11.7 H RBC 3.23 L Hgb 9.8 L D Hct 29.0 L MCV 89.7 MCH 30.3 MCHC 33.8 RDW 14.4 Plt Count 207 MPV 9.4 Neut % (Auto) 85.2 H Lymph % (Auto) 6.9 L [place] % (Auto) 7.7 Eos % (Auto) 0.0 Baso % (Auto) 0.2 Neut # (Auto) 10.0 H Lymph # (Auto) 0.8 L [place] # (Auto) 0.9 Eos # (Auto) 0.0 Baso # (Auto) 0.0 WBC Differential . Differential Comment Auto diff final Sodium 131 L Potassium 3.9 Chloride 94 L Carbon Dioxide 27.7 Anion Gap 9 BUN 15 Creatinine 0.74 Estimated GFR 74 L Random Glucose 132 H Calcium 7.7 L D - Imaging Impressions Hip X-Ray 04/12/18 00:00 CONCLUSION: Good position and alignment on the postoperative study. Assessment and Plan - Ortho Post Op Day # 2 - Assessment and Plan s/p R Troch nail POD#1 (04/12/18) 50% PWB RLE daily dressing changes lovenox, d/c on asa 81 d/c planning f/up dr. deleon 2 weeks
[2018-04-13] MEDS: Sod Chloride 0.9% Inj 1,000 ML IV.CONT SCH ×2 (10:44→10:45)
[2018-04-13] MEDS: Sodium Chloride 0.9% 2 ML Flush BID IV.FLUSH SCH ×2 (10:44→20:39)
[2018-04-13] MEDS: Famotidine PF Inj 20 MG/2 ML Vial IV.PUSH SCH ×2 (10:56→20:38)
[2018-04-13] MEDS: Acetaminophen 325 MG Tablet PO PRN ×2 (10:56→20:04)
[2018-04-13] MEDS: guaiFENesin 600 MG ER Tablet PO SCH ×2 (10:56→20:38)
[2018-04-13] MEDS: Enoxaparin Inj 40 MG/0.4 ML Syringe SQ SCH (10:56)
--- NOTE | 2018-04-13 12:16 | P.PN ---
Subjective Interval history: Follow up for closed intertrochanteric fracture. Patient is doing well. No acute concerns. No fever, chills. Physical Exam Vital signs: Vital Signs 04/12/18 15:42 04/12/18 15:45 04/12/18 16:00 Temperature 96.5 F L Pulse Rate 92 H 92 H 99 H Respiratory Rate 25 H 16 15 Blood Pressure 177/85 H 169/79 H 177/82 H Pulse Oximetry 95 95 96 04/12/18 16:15 04/12/18 16:30 04/12/18 16:45 Temperature Pulse Rate 101 H 93 H 76 Respiratory Rate 22 13 14 Blood Pressure 189/93 H 188/84 H 125/60 Pulse Oximetry 95 96 97 04/12/18 17:01 04/12/18 17:30 04/12/18 18:00 Temperature 99 F Pulse Rate 79 85 80 Respiratory Rate 20 17 19 Blood Pressure 126/60 131/60 144/67 H Pulse Oximetry 99 98 97 04/12/18 18:30 04/12/18 18:42 04/12/18 20:00 Temperature 97.7 F Pulse Rate 83 88 Respiratory Rate 14 18 Blood Pressure 135/60 152/68 H Pulse Oximetry 99 95 93 L 04/13/18 00:00 04/13/18 04:00 04/13/18 08:00 Temperature 97.6 F 97.9 F 98.6 F Pulse Rate 94 H 92 H 85 Respiratory Rate 18 18 18 Blood Pressure 162/75 H 143/91 H 106/52 L Pulse Oximetry 93 L 93 L 92 L 04/13/18 08:12 Temperature Pulse Rate 79 Respiratory Rate 12 Blood Pressure Pulse Oximetry Intake & Output 04/12/18 04/13/18 04/13/18 18:59 06:59 18:59 Intake Total 700 / 700 1100 / 1100 Output Total 1800 / 1800 Balance -1100 / -1100 1100 / 1100 Weight 90.9 kg Intake: IV 1100 / 1100 NS Inj 1,000 ML @ 70 mls/hr IV. 1000 / 1000 CONT .[id number] [facility] Rx#:[id number] Cleocin 600 mg/NS Premix 600 mg 100 / 100 In 50 ml @ 100 mls/hr IV.SIG Q8H [facility] Rx#:[id number] Anesthesia Amount 700 / 700 Output: Estimated Blood Loss 100 / 100 Urine Amount (Catheter) 1700 / 1700 Indwelling Urethral Catheter 1699 / 170 Other: Date of Last Bowel Movement 04/11/18 04/11/18 Weight On Admission 90 kg Narrative: GENERAL: Alert, NAD. SKIN: Warm and dry. HEAD: Normocephalic. EYES: No scleral icterus. No injection or drainage. NECK: Supple, trachea midline. No JVD or lymphadenopathy. CARDIOVASCULAR: Regular rate and rhythm without murmurs, gallops, or rubs. RESPIRATORY: Breath sounds equal bilaterally. No accessory muscle use. GASTROINTESTINAL: Abdomen soft, non-tender, nondistended. MUSCULOSKELETAL: No cyanosis, or edema. BACK: Nontender without obvious deformity. No CVA tenderness. - Urinary Catheter Management Indwelling Urethral Catheter Cath placed during this visit: yes Reason for continuing: Acute urinary retention Insertion date: 04/12/18 Insertion time: 06:45 Results - Labs CBC & Chem 7: 04/13/18 05:05 04/13/18 05:05 Laboratory Results - last 24 hr 04/13/18 04/13/18 05:05 05:05 WBC 11.7 H RBC 3.23 L Hgb 9.8 L D Hct 29.0 L MCV 89.7 MCH 30.3 MCHC 33.8 RDW 14.4 Plt Count 207 MPV 9.4 Neut % (Auto) 85.2 H Lymph % (Auto) 6.9 L [place] % (Auto) 7.7 Eos % (Auto) 0.0 Baso % (Auto) 0.2 Neut # (Auto) 10.0 H Lymph # (Auto) 0.8 L [place] # (Auto) 0.9 Eos # (Auto) 0.0 Baso # (Auto) 0.0 WBC Differential . Differential Comment Auto diff final Sodium 131 L Potassium 3.9 Chloride 94 L Carbon Dioxide 27.7 Anion Gap 9 BUN 15 Creatinine 0.74 Estimated GFR 74 L Random Glucose 132 H Calcium 7.7 L D - Imaging Impressions Hip X-Ray 04/12/18 00:00 CONCLUSION: Good position and alignment on the postoperative study. - Procedures 04/12/2018 Open reduction and internal fixation with intramedullary nailing, right intertrochanteric hip fracture. Assessment and Plan - Plan The patient is an 88 year old female who presents to the [facility] emergency department with a history of getting up and going to the kitchen to get a drink of water when she lost her balance and fell. She was found to have right hip fracture. Right intertrochanteric hip fracture - s/p Open reduction and internal fixation with intramedullary nailing -Continue acetaminophen, morphine for pain control. -Lovenox 40 mg SQ daily. Anxiety Hyperlipidemia Hypertension Insomnia -Continue Xanax 0.25 mg p.o. twice daily, temazepam 7.5 mg p.o. nightly - both as needed -Continue statin. Full code. Lovenox.
[2018-04-13] MEDS: Calcitonin Salmon Nasal 200 UNITS/Actuation - (3.7 ML) NASAL SCH (17:42)
[2018-04-14] MEDS: Acetaminophen 325 MG Tablet PO PRN (01:41)
[2018-04-14] MEDS: Sod Chloride 0.9% Inj 1,000 ML IV.CONT SCH (01:41)
--- NOTE | 2018-04-14 07:28 | P.PNOP ---
Subjective Interval history: pain tolerable. somewhat confused. Physical Exam Vital signs: Vital Signs 04/13/18 08:00 04/13/18 08:12 04/13/18 12:00 Temperature 98.6 F 98.4 F Pulse Rate 85 79 85 Respiratory Rate 18 12 18 Blood Pressure 106/52 L 112/54 L Pulse Oximetry 92 L 93 L 04/13/18 15:00 04/13/18 16:00 04/13/18 20:00 Temperature 98.1 F 98.5 F Pulse Rate 86 85 94 H Respiratory Rate 16 15 18 Blood Pressure 122/62 123/60 Pulse Oximetry 96 96 04/13/18 20:16 04/13/18 20:35 04/13/18 21:47 Temperature Pulse Rate 96 H 95 H Respiratory Rate 22 Blood Pressure Pulse Oximetry 96 98 04/13/18 23:50 04/14/18 00:40 04/14/18 03:20 Temperature 97.7 F Pulse Rate 100 H 95 H 95 H Respiratory Rate 16 20 Blood Pressure 135/63 Pulse Oximetry 97 04/14/18 03:41 04/14/18 05:05 Temperature 98.1 F Pulse Rate 98 H 95 H Respiratory Rate 17 Blood Pressure 149/70 H Pulse Oximetry 95 Intake & Output 04/13/18 04/14/18 04/14/18 18:59 06:59 18:59 Intake Total 600 / 600 1240 / 1240 Output Total 650 / 650 200 / 200 Balance -50 / -50 1040 / 1040 Weight 89.9 kg Intake: IV 1000 / 1000 LR 1000 mL Inj 1,000 ML @ 75 1000 / 1000 mls/hr IV.SIG .[id number] [facility] Rx#: [id number] Oral 600 / 600 240 / 240 Output: Urine 650 / 650 200 / 200 Other: # Incontinent Voids 2 Date of Last Bowel Movement 04/11/18 04/11/18 # Bowel Movements 0 Narrative: in bed, nad, confused dressing with mild bloody drainage neg richard nvi - Urinary Catheter Management Indwelling Urethral Catheter Cath placed during this visit: yes Reason for continuing: Acute urinary retention Insertion date: 04/12/18 Insertion time: 06:45 Results - Labs CBC & Chem 7: 04/13/18 05:05 04/13/18 05:05 Laboratory Results - last 24 hr 04/13/18 04/13/18 05:05 05:05 WBC 11.7 H RBC 3.23 L Hgb 9.8 L D Hct 29.0 L MCV 89.7 MCH 30.3 MCHC 33.8 RDW 14.4 Plt Count 207 MPV 9.4 Neut % (Auto) 85.2 H Lymph % (Auto) 6.[address] % (Auto) 7.7 Eos % (Auto) 0.0 Baso % (Auto) 0.2 Neut # (Auto) 10.0 H Lymph # (Auto) 0.[address] # (Auto) 0.9 Eos # (Auto) 0.0 Baso # (Auto) 0.0 WBC Differential . Differential Comment Auto diff final Sodium 131 L Potassium 3.9 Chloride 94 L Carbon Dioxide 27.7 Anion Gap 9 BUN 15 Creatinine 0.74 Estimated GFR 74 L Random Glucose 132 H Calcium 7.7 L D - Procedures 04/12/2018 Open reduction and internal fixation with intramedullary nailing, right intertrochanteric hip fracture. Assessment and Plan - Ortho Post Op Day # 2 - Assessment and Plan s/p R Troch nail POD#2 (04/12/18) 50% PWB RLE daily dressing changes lovenox, d/c on asa 81 dementia - monitor incision sites as patient has been picking at daniela d/c planning f/up dr. deleon 2 weeks
[2018-04-14] MEDS: guaiFENesin 600 MG ER Tablet PO SCH (08:39)
[2018-04-14] MEDS: Enoxaparin Inj 40 MG/0.4 ML Syringe SQ SCH (08:39)
[2018-04-14] MEDS: Famotidine PF Inj 20 MG/2 ML Vial IV.PUSH SCH (08:39)
[2018-04-14] MEDS: Sodium Chloride 0.9% 2 ML Flush BID IV.FLUSH SCH (08:40)
[2018-04-14 08:43] VITALS: RESP 16
[2018-04-14] MEDS: Calcitonin Salmon Nasal 200 UNITS/Actuation - (3.7 ML) NASAL SCH (08:47)
[2018-04-14 12:24] VITALS: BP 172/74; PULSE 96; TEMP 98; O2SAT 90
--- NOTE | 2018-04-14 17:23 | P.DS ---
Date of admission: 04/12/18 06:13 Primary care physician: UNKNOWN Brief History from admission: This is a pleasant 88 y/o Female who came to Emergency room today status post fall, as per patient she was getting up and going to the kitchen to get a drink of water when she lost her balance. She reports that she landed on her right side and now has right hip pain. She denies hitting her head or losing consciousness. She denies having any neck pain, numbness or tingling to her extremities or weakness of her extremities. She reports that she was unable to get up. Ironically, the patient also reports that 7 weeks ago she injured her left leg. She reports that she had left hip surgery and a left tib-fib repair, takes aspirin, She denies having any chest pain, chest pressure, shortness of breath, other extremity pain, or abdominal pain. She is been seen in Emergency Room discussed with patient and with her Daughter Mrs. Leslie Magaña, She confirm the patient has osteoporosis using nasal calcitonin, Hyperlipidemia takes simvastatin, Lymphedema managed with diuretics but were removed one week ago by nurse, GERD on PPIs, status post total left knee replacement. 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 Recent Left Hip arthroplasty status post trauma seven weeks ago, she was at [place] inpatient rehab for 3 weeks, then was on [place] in house for 3 weeks more, had also Tibia/Fibula fracture DS: Medications - Discharge Medications Prescriptions: aspirin [Aspirin Low Dose] 81 mg PO BID #30 tab DS: Summary Hospital Course: The patient is an 88 year old female who presents to the [facility] emergency department with a history of getting up and going to the kitchen to get a drink of water when she lost her balance and fell. She was found to have right hip fracture. Right intertrochanteric hip fracture - s/p Open reduction and internal fixation with intramedullary nailing -Continue acetaminophen, morphine for pain control. -Lovenox 40 mg SQ daily. -Orthopedic surgery recommended aspirin 81 mg upon discharge. 50% PWB RLE daily dressing changes Anxiety Hyperlipidemia Hypertension Insomnia -Continue Xanax 0.25 mg p.o. twice daily, temazepam 7.5 mg p.o. nightly - both as needed -Continue statin. Full code. Lovenox. - Time Spent with Patient Total time spent providing and/or coordinating discharge services: Less than 30 minutes - Quality: VTE Deep Vein Thrombosis/Pulmonary Embolism Present on Admission: No Exam Vital signs: Vital Signs 04/13/18 20:00 04/13/18 20:16 04/13/18 20:35 Temperature 98.5 F Pulse Rate 94 H 96 H Respiratory Rate 18 Blood Pressure 123/60 Pulse Oximetry 96 96 04/13/18 21:47 04/13/18 23:50 04/14/18 00:40 Temperature 97.7 F Pulse Rate 95 H 100 H 95 H Respiratory Rate 22 16 Blood Pressure 135/63 Pulse Oximetry 98 97 04/14/18 03:20 04/14/18 03:41 04/14/18 05:05 Temperature 98.1 F Pulse Rate 95 H 98 H 95 H Respiratory Rate 20 17 Blood Pressure 149/70 H Pulse Oximetry 95 04/14/18 08:00 04/14/18 09:00 04/14/18 09:04 Temperature 97.7 F Pulse Rate 92 H 115 H 82 Respiratory Rate 16 16 Blood Pressure 176/74 H Pulse Oximetry 96 99 04/14/18 12:00 Temperature 98.0 F Pulse Rate 96 H Respiratory Rate 16 Blood Pressure 172/74 H Pulse Oximetry 90 L Intake & Output 04/13/18 04/14/18 04/14/18 18:59 06:59 18:59 Intake Total 600 / 600 1240 / 1240 Output Total 650 / 650 200 / 200 Balance -50 / -50 1040 / 1040 Weight 89.9 kg Intake: IV 1000 / 1000 LR 1000 mL Inj 1,000 ML @ 75 1000 / 1000 mls/hr IV.SIG .[id number] [facility] Rx#: [id number] Oral 600 / 600 240 / 240 Output: Urine 650 / 650 200 / 200 Other: # Incontinent Voids 2 Date of Last Bowel Movement 04/11/18 04/11/18 # Bowel Movements 0 Results Procedures completed during hospitalization: 04/12/2018 Open reduction and internal fixation with intramedullary nailing, right intertrochanteric hip fracture. - Impressions ITS Impressions Chest X-Ray 04/12/18 05:00 CONCLUSION: Suspected mild atelectasis or consolidation at the lateral left base. Hip X-Ray 04/12/18 05:00 CONCLUSION: Acute right intertrochanteric femoral neck fracture. Discharge Plan - Discharge Disposition Patient Disposition: [facility] Inpatient - Discharge Condition Condition: Fair - Discharge Order Discharge Orders: Discharge Order (Routine); Ordered 04/14/18 Ordered By: Bladimir Cadena - Discharge Details Anticipated Discharge Date: 04/14/18 - Physicians Team Primary Care Provider: UNKNOWN, Attending Provider: Bladimir Cadena Other Providers: Ho Jaeger MD
== END 2018-04-14 16:08 ==
LOC: NEPC 04:29 → NEDA 06:13 → H7ONC 12:15 → N06 13:44
PROVIDERS: ADMIT Hospitalist; ATTEND Hospitalist